=== PATIENT | female | born 1950 | race Caucasian/White ===

== ENCOUNTER → 2017-08-03 | Day surgery (SDC) | payer MEDICARE, MEDICAID ==
[~2017-08-03] MED LIST: Cefuroxime 10 MG/ML SYRINGE EYERT SCH; Lidocaine 1% PF 2 ML SDV INJECT SCH; Pilocarpine 4% Ophth Soln 15 ML Bot EYERT SCH
[2017-08-03] MEDS: Polymyxin B/Trimethoprim 10 ML Bottle EYERT SCH ×3 (08:55→10:49)
[2017-08-03] MEDS: Brimonidine 0.2% Ophth Soln 5 ML Bottle EYERT SCH ×3 (09:05→10:49)
[2017-08-03] MEDS: Phenylephrine 2.5% Ophth Soln 2 ML Bot EYERT SCH ×5 (09:10→10:25)
[2017-08-03] MEDS: Tetracaine HCl/PF 0.5% 4 ML Bottle EYERT SCH ×2 (10:18→10:47)
[2017-08-03 16:57] VITALS: BP 114/70
== END ==
LOC: JD.SDS 08:02
PROVIDERS: ATTEND Ophthalmology
DX: E11.36 Type 2 diabetes mellitus with diabetic cataract (principal); H02.831 Dermatochalasis of right upper eyelid; H02.834 Dermatochalasis of left upper eyelid; H52.31 Anisometropia; M19.90 Unspecified osteoarthritis, unspecified site; E78.00 Pure hypercholesterolemia, unspecified; M10.9 Gout, unspecified; I48.91 Unspecified atrial fibrillation; K21.9 Gastro-esophageal reflux disease without esophagitis; E11.40 Type 2 diabetes mellitus with diabetic neuropathy, unspecified; K76.0 Fatty (change of) liver, not elsewhere classified; G47.30 Sleep apnea, unspecified; Z79.82 Long term (current) use of aspirin; Z79.84 Long term (current) use of oral hypoglycemic drugs; Z79.899 Other long term (current) drug therapy; Z88.0 Allergy status to penicillin; Z88.1 Allergy status to other antibiotic agents; Z88.8 Allergy status to other drugs, medicaments and biological substances; Z91.013 Allergy to seafood; Z91.018 Allergy to other foods; Z98.890 Other specified postprocedural states
CPT/HCPCS: 66984; J0697; V2632; A9270-GY

== ENCOUNTER 2017-09-02 08:23 | Day surgery (SDC) | payer MEDICARE, MEDICAID ==
[~2017-09-02 08:23] MED LIST changes: +Cefuroxime 10 MG/ML SYRINGE EYELF SCH; -Cefuroxime 10 MG/ML SYRINGE EYERT SCH; +Pilocarpine 4% Ophth Soln 15 ML Bot EYELF SCH; -Pilocarpine 4% Ophth Soln 15 ML Bot EYERT SCH
[2017-09-02] MEDS: Polymyxin B/Trimethoprim 10 ML Bottle EYELF SCH ×3 (08:58→10:32)
[2017-09-02] MEDS: Brimonidine 0.2% Ophth Soln 5 ML Bottle EYELF SCH ×3 (09:03→10:32)
[2017-09-02] MEDS: Phenylephrine 2.5% Ophth Soln 2 ML Bot EYELF SCH ×5 (09:08→10:14)
--- NOTE | 2017-09-02 09:27 | PCM.PREANE ---
Preanesthetic Assessment - Anesthesia/Transfusion/Family Hx Anesthesia History: Prior Anesthesia Without Reaction Family History of Anesthesia Reaction: No Transfusion History: No Prior Transfusion(s) - Review of Systems General: No Symptoms Pulmonary: No Symptoms Cardiovascular: No Symptoms Gastrointestinal: No Symptoms Neurological: No Symptoms Other: Reports: Diabetes - Physical Assessment NPO Status Date: 09/01/17 NPO Status Time: 22:00 O2 Sat by Pulse Oximetry: 91 Respiratory Rate: 20 Vital Signs: Last Vital Signs Temp 98.0 F 09/02/17 08:45 Pulse 62 09/02/17 08:45 Resp 20 09/02/17 08:45 BP 140/57 L 09/02/17 08:45 Pulse Ox 91 L 09/02/17 08:45 Height: 4 ft 9 in Weight: 119.748 kg ASA Class: 3 Mental Status: Alert & Oriented x3 Airway Class: Mallampati = 1 Dentition: Reports: Normal Dentition Thyro-Mental Finger Breadths: 3 Mouth Opening Finger Breadths: 3 ROM/Head Extension: Full Lungs: Clear to Auscultation, Normal Respiratory Effort Cardiovascular: Regular Rate, Regular Rhythm - Allergies Allergies/Adverse Reactions: Allergies Allergy/AdvReac Type Severity Reaction Status Date / Time amoxicillin Allergy Hives Verified 09/01/17 14:00 coconut oil Allergy Cannot Verified 09/01/17 14:00 Remember corn Allergy Itching Verified 09/01/17 14:00 doxycycline Allergy Hives Verified 09/01/17 14:00 lithium Allergy Cannot Verified 09/01/17 14:00 Remember Penicillins Allergy Hives Verified 09/01/17 14:00 rofecoxib [From Vioxx] Allergy Cannot Verified 09/01/17 14:00 Remember soy Allergy Itching Verified 09/01/17 14:00 wheat Allergy Cannot Verified 09/01/17 14:00 Remember oats Allergy Itching Uncoded 09/01/17 14:00 - Blood Blood Available: No - Anesthesia Plan Beta Antonio: Atenolol Med Last Dose Date: 09/02/17 Med Last Dose Time: 09:30 - Acknowledgements Anesthesia Type Planned: MAC Pt an Appropriate Candidate for the Planned Anesthesia: Yes Alternatives and Risks of Anesthesia Discussed w Pt/Guardian: Yes Pt/Guardian Understands and Agrees with Anesthesia Plan: Yes PreAnesthesia Questionnaire HEENT History: Reports: Allergic Rhinitis, Cataract Cardiovascular History: Reports: Afib, High Cholesterol, Hypertension Other Cardiovascular History: lower leg lymphedema, edema, Hx of Chest Pressure with A-Fib Respiratory History: Reports: Asthma, Sleep Apnea Other Respiratory History: does not use her CPAP Gastrointestinal History: Reports: GERD Musculoskeletal History: Reports: Arthritis, Gout, Osteoarthritis Endocrine/Metabolic History: Reports: Diabetes, Type II Dermatologic History: Reports: Other (See Below) Other Dermatologic History: rash on her abdomen - Past Surgical History HEENT Surgical History: Reports: Cataract Surgery GI Surgical History: Reports: Cholecystectomy, Hernia, Inguinal Musculoskeletal Surgical History: Reports: Knee Replacement - SUBSTANCE USE Smoking Status *Q: Never Smoker Tobacco Use Within Last Twelve Months: No Second Hand Smoke Exposure: No Days Per Week of Alcohol Use: 0 Recreational Drug Use History: No - HOME MEDS Home Medications: Home Meds Acetaminophen [Tylenol Arthritis Pain] 650 mg PO Q8HR PRN 08/08/14 [History] Allopurinol [Allopurinol] 0.5 tab PO DAILY 08/08/14 [History] Aspirin [Adult Low Dose Aspirin EC] 81 mg PO DAILY 08/08/14 [History] Atenolol [Tenormin] 1 tab PO DAILY 08/08/14 [History] Calcium Carb & Citrate/Vit D3 [Calcium + D3 ER Tablet] 600 mg PO DAILY 08/08/14 [History] Furosemide [Lasix] 1 tab PO BID 08/08/14 [History] Multivitamin [Multivitamins] 1 tab PO DAILY 08/08/14 [History] Ondansetron [Zofran] 4 mg BUCCAL Q6H PRN #5 tab 08/08/14 [Rx] Pantoprazole [Protonix] 40 mg PO DAILY 08/08/14 [History] Polyvinyl Alcohol/Povidone [Refresh Eye Drops] 1 each EYEBOTH DAILY 08/08/14 [ History] Potassium Chloride [Klor-Con M20] 20 meq PO DAILY 08/08/14 [History] Rosuvastatin [Crestor] 1 tab PO DAILY 08/08/14 [History] Vitamin B Complex 1 tab PO DAILY 08/08/14 [History] guaiFENesin [Mucinex] 300 mg PO DAILY 08/08/14 [History] metFORMIN [Glucophage] 250 mg PO BID 08/08/14 [History] Cetirizine [ZyrTEC] 10 mg PO DAILY 11/27/15 [History] Diltiazem HCl [Diltiazem ER] 180 mg PO DAILY 11/27/15 [History] Menthol [Biofreeze] 1 applic TP Q4HR PRN 11/27/15 [History] Sennosides/Docusate Sodium [Sennalax-S] 1 each PO BID 11/27/15 [History] Triamcinolone Acetonide [Triamcinolone Acetonide 0.1% Crm] 1 applic TOP BID [History] guaiFENesin [Mucinex] 600 mg PO BEDTIME 11/27/15 [History] - CURRENT (IN HOUSE) MEDS Current Meds: Current Medications Brimonidine Tartrate (Alphagan 0.2% Ophth Soln) 0 ml EYELF ASDIRECTED ILA Stop: 09/02/17 16:00 Last Admin: 09/02/17 09:03 Dose: 1 drop Cefuroxime Sodium (Zinacef) 0 mg EYELF ASDIRECTED ILA Stop: 09/02/17 16:00 Lidocaine HCl (Xylocaine-Mpf 1%) 1 ml INJECT ASDIRECTED ILA Stop: 09/02/17 16:00 Phenylephrine HCl (Yandel-Synephrine 2.5% Ophth Soln) 0 ml EYELF ASDIRECTED ILA Stop: 09/02/17 16:00 Last Admin: 09/02/17 09:08 Dose: 1 drop Pilocarpine HCl (Pilocar 4% Ophth Soln) 0 ml EYELF ASDIRECTED ILA Stop: 09/02/17 16:00 Polymyxin/Trimethoprim Sulfate (Polytrim Ophth Soln) 0 ml EYELF ASDIRECTED ILA Stop: 09/02/17 16:00 Last Admin: 09/02/17 08:58 Dose: 1 drop Tetracaine HCl (Tetracaine 0.5% Steri-Unit Maci) 0 ml EYELF ASDIRECTED ILA Stop: 09/02/17 16:00 Tropicamide (Mydriacyl 1% Ophth Soln) 0 ml EYELF ASDIRECTED ILA Stop: 09/02/17 16:00 Last Admin: 09/02/17 09:16 Dose: 1 drop
[2017-09-02] MEDS: Tetracaine HCl/PF 0.5% 4 ML Bottle EYELF SCH ×2 (10:02→10:22)
--- NOTE | 2017-09-02 10:35 | PCM48HPAN ---
Post Anesthesia Note - EVALUATION WITHIN 48HRS OF ANESTHETIC Vital Signs in Normal Range: Yes Patient Participated in Evaluation: Yes Respiratory Function Stable: Yes Airway Patent: Yes Cardiovascular Function Stable: Yes Hydration Status Stable: Yes Pain Control Satisfactory: Yes Nausea and Vomiting Control Satisfactory: Yes Mental Status Recovered: Yes
[2017-09-02 10:55] VITALS: BP 114/63
== END 2017-09-02 10:46 | disposition home or self-care (01) ==
LOC: JD.SDS 08:23
PROVIDERS: ATTEND Ophthalmology
DX: E11.36 Type 2 diabetes mellitus with diabetic cataract (principal); M19.90 Unspecified osteoarthritis, unspecified site; J45.909 Unspecified asthma, uncomplicated; E78.00 Pure hypercholesterolemia, unspecified; M10.9 Gout, unspecified; I10 Essential (primary) hypertension; K76.0 Fatty (change of) liver, not elsewhere classified; G47.30 Sleep apnea, unspecified; I48.91 Unspecified atrial fibrillation; K21.9 Gastro-esophageal reflux disease without esophagitis; E11.40 Type 2 diabetes mellitus with diabetic neuropathy, unspecified; Z96.1 Presence of intraocular lens; Z90.49 Acquired absence of other specified parts of digestive tract; Z96.659 Presence of unspecified artificial knee joint; Z79.899 Other long term (current) drug therapy; Z79.82 Long term (current) use of aspirin; Z79.84 Long term (current) use of oral hypoglycemic drugs; Z88.0 Allergy status to penicillin; Z88.1 Allergy status to other antibiotic agents; Z91.018 Allergy to other foods; Z88.8 Allergy status to other drugs, medicaments and biological substances; Z91.013 Allergy to seafood
CPT/HCPCS: 66984; J0697; V2632; A9270-GY

== ENCOUNTER 2018-02-19 11:19 | Emergency (ER) | payer MEDICARE, MEDICAID ==
[2018-02-19 11:26] VITALS: BP 136/69
[2018-02-19] MEDS ORDERED: HYDROmorphone 0.5 MG/0.5 ML SYRINGE IVPUSH ONE (11:40)
[2018-02-19] MEDS ORDERED: Sodium Chloride 0.9% 10 ML Syringe FLUSH PRN (11:40)
--- NOTE | 2018-02-19 11:43 | EDM.PDOC ---
ED HPI GENERAL MEDICAL PROBLEM - General Chief Complaint: Lower Extremity Injury/Pain Stated Complaint: [facility] Time Seen by Provider: 02/19/18 11:31 Source of Information: Reports: Patient History Limitations: Reports: No Limitations - History of Present Illness INITIAL COMMENTS - FREE TEXT/NARRATIVE: 68-year-old female presents to [facility] for evaluation and treatment of bilateral knee pain post fall. Patient reports that she recently relocated to a new apartment building. She previously had rails on either side of her toilet. At her new apartment she only has a rail on one side and a small cabinet on the other. Reports that she was getting off of the toilet she was not able to fully support herself and fell. She landed onto both knees. She reports that her she did hit her head on a cart in front of her but she did not pass out or lose consciousness. She denies any nausea or vomiting. She is pain complaining of pain to the bilateral knees, worse with movement. She reports numbness and tingling to the anterior bilateral knees. No pain to arms, hip or back. patient had bilateral knee replacement. Right knee was done in 2012 and left knee was in 2014. Both of these were done by Dr. Hill at [facility] in [place]. Bilateral Knee Pain Score (Numeric/FACES): 7 - Related Data Allergies Allergy/AdvReac Type Severity Reaction Status Date / Time amoxicillin Allergy Hives Verified 02/19/18 13:45 coconut oil Allergy Cannot Verified 02/19/18 13:45 Remember corn Allergy Itching Verified 02/19/18 13:45 doxycycline Allergy Hives Verified 02/19/18 13:45 lithium Allergy Cannot Verified 02/19/18 13:45 Remember Penicillins Allergy Hives Verified 02/19/18 13:45 rofecoxib [From Vioxx] Allergy Cannot Verified 02/19/18 13:45 Remember soy Allergy Itching Verified 02/19/18 13:45 wheat Allergy Cannot Verified 02/19/18 13:45 Remember oats Allergy Itching Uncoded 09/01/17 14:00 Home Meds: Home Meds Acetaminophen [Tylenol Arthritis Pain] 650 mg PO Q8HR PRN 08/08/14 [History] Allopurinol 0.5 tab PO DAILY 08/08/14 [History] Aspirin [Adult Low Dose Aspirin EC] 81 mg PO DAILY 08/08/14 [History] Atenolol [Tenormin] 1 tab PO DAILY 08/08/14 [History] Calcium Carb & Citrate/Vit D3 [Calcium + D3 ER Tablet] 600 mg PO DAILY 08/08/14 [History] Furosemide [Lasix] 1 tab PO BID 08/08/14 [History] Multivitamin [Multivitamins] 1 tab PO DAILY 08/08/14 [History] Ondansetron [Zofran] 4 mg BUCCAL Q6H PRN #5 tab 08/08/14 [Rx] Pantoprazole [Protonix] 40 mg PO DAILY 08/08/14 [History] Polyvinyl Alcohol/Povidone [Refresh Eye Drops] 1 each EYEBOTH DAILY 08/08/14 [ History] Potassium Chloride [Klor-Con M20] 20 meq PO DAILY 08/08/14 [History] Rosuvastatin [Crestor] 1 tab PO DAILY 08/08/14 [History] Vitamin B Complex 1 tab PO DAILY 08/08/14 [History] guaiFENesin [Mucinex] 300 mg PO DAILY 08/08/14 [History] metFORMIN [Glucophage] 250 mg PO BID 08/08/14 [History] Cetirizine [ZyrTEC] 10 mg PO DAILY 11/27/15 [History] Diltiazem HCl [Diltiazem ER] 180 mg PO DAILY 11/27/15 [History] Menthol [Biofreeze] 1 applic TP Q4HR PRN 11/27/15 [History] Sennosides/Docusate Sodium [Sennalax-S] 1 each PO BID 11/27/15 [History] Triamcinolone Acetonide [Triamcinolone Acetonide 0.1% Crm] 1 applic TOP BID [History] guaiFENesin [Mucinex] 600 mg PO BEDTIME 11/27/15 [History] Past Medical History HEENT History: Reports: Allergic Rhinitis, Cataract Cardiovascular History: Reports: Afib, High Cholesterol, Hypertension Other Cardiovascular History: lower leg lymphedema, edema, Hx of Chest Pressure with A-Fib Respiratory History: Reports: Asthma, Sleep Apnea Other Respiratory History: does not use her CPAP Gastrointestinal History: Reports: GERD Musculoskeletal History: Reports: Arthritis, Gout, Osteoarthritis Endocrine/Metabolic History: Reports: Diabetes, Type II Dermatologic History: Reports: Other (See Below) Other Dermatologic History: rash on her abdomen - Past Surgical History HEENT Surgical History: Reports: Cataract Surgery GI Surgical History: Reports: Cholecystectomy, Hernia, Inguinal Musculoskeletal Surgical History: Reports: Knee Replacement Review of Systems - Review of Systems Review Of Systems: See Below GI/Abdominal: Denies: Nausea, Vomiting Musculoskeletal: Reports: Joint Pain (bilateral knee pain). Denies: Neck Pain, Arm Pain, Back Pain Neurological: Reports: Numbness (bilateral knees), Tingling (bilateral knees). Denies: Headache, Syncope ED EXAM, GENERAL - Physical Exam Exam: See Below Exam Limited By: No Limitations General Appearance: Alert, WD/WN, No Apparent Distress, Obese Eye Exam: Bilateral Eye: Normal Inspection Ears: Normal External Exam Nose: Normal Inspection Throat/Mouth: Normal Inspection Head: Atraumatic, Normocephalic Neck: Normal Inspection, Full Range of Motion Respiratory/Chest: No Respiratory Distress, Lungs Clear, Normal Breath Sounds Cardiovascular: Normal Peripheral Pulses, Regular Rate, Rhythm, No Murmur Peripheral Pulses: 2+: Dorsalis Pedis (L), Dorsalis Pedis (R) Extremities: Normal Inspection, Normal Capillary Refill, Limited Range of Motion (able to flex the bilteral knees to 90 degrees; knee pain/body habitus limiting full ROM), Other (posterior tibialis pulses obscured by edema; 3+ nonpitting edema to the bilateal legs; reports sensation to light touch to the bilteral knees and lower legs) Neurological: Alert, Oriented, Normal Cognition Psychiatric: Normal Affect, Normal Mood Skin Exam: Warm, Dry, Normal Color Course - Vital Signs Last Recorded V/S: Last Vital Signs Temp 98.7 F 02/19/18 11:25 Pulse 72 02/19/18 11:25 Resp 20 02/19/18 11:25 BP 136/69 02/19/18 11:25 Pulse Ox 94 L 02/19/18 11:25 - Orders/Labs/Meds Orders: Active Orders 24 hr Category Date Time Status Peripheral IV Care [RC] . DIRECTED Care 02/19/18 11:40 Active Knee Min 4V Lt [CR] Stat Exams 02/19/18 11:40 Taken Knee Min 4V Rt [CR] Stat Exams 02/19/18 11:40 Taken Peripheral IV Insertion Adult [OM.PC] Routine Oth 02/19/18 11:40 Ordered Meds: Medications Discontinued Medications Generic Name Dose Route Start Last Admin Trade Name Jamar PRN Reason Stop Dose Admin Hydromorphone HCl 0.5 mg 02/19/18 11:40 Dilaudid IVPUSH 02/19/18 11:41 ONETIME ONE Hydromorphone HCl 0.5 mg 02/19/18 11:52 02/19/18 11:54 Dilaudid IM 02/19/18 11:53 0.5 mg ONETIME ONE Administration Sodium Chloride 10 ml 02/19/18 11:40 Saline Flush FLUSH ASDIRECTED PRN Keep Vein Open - Radiology Interpretation Free Text/Narrative:: xray of the right knee shows a total knee replacement. Hardware appears in place. No fractures or dislocations seen. xray of the left knee shows a total knee replacement. Hardware appears in place. No fractures or dislocations seen. - Re-Assessments/Exams Free Text/Narrative Re-Assessment/Exam: 02/19/18 13:10 IM dilaudid has given patient has good pain relief with this. Reviewed the x-rays with the patient. No acute fractures seen. Likely soft tissue swelling. Encourage elevation and ice. Follow-up with primary care next week to ensure symptoms have improved. Discharge instructions as documented. Departure - Departure Time of Disposition: 13:12 Disposition: Home, Self-Care 01 Condition: Fair Clinical Impression: Fall, Knee pain, Status post total knee replacement, bilateral - Discharge Information Instructions: Knee Pain, Adult, Fall Prevention in the Home Referrals: Eugenio Aguilar MD [Primary Care Provider] - Alex Hill MD [Ordering Only Provider] - Forms: ED Department Discharge Additional Instructions: [id number] Tylenol or Motrin as needed for pain relief. Elevate the legs to help with the swelling. Ice the knees 3 or times a day for about 20-30 minutes. Follow-up with your primary care provider for recheck of your knees within 1 week. Please return to the ER if your symptoms change or worsen. - My Orders Last 24 Hours: My Active Orders 02/19/18 11:40 Peripheral IV Care [RC] . DIRECTED Knee Min 4V Lt [CR] Stat Knee Min 4V Rt [CR] Stat Peripheral IV Insertion Adult [OM.PC] Routine - Assessment/Plan Last 24 Hours: My Active Orders 02/19/18 11:40 Peripheral IV Care [RC] . DIRECTED Knee Min 4V Lt [CR] Stat Knee Min 4V Rt [CR] Stat Peripheral IV Insertion Adult [OM.PC] Routine
[2018-02-19] MEDS ORDERED: HYDROmorphone 0.5 MG/0.5 ML SYRINGE IM ONE (11:52)
--- NOTE | 2018-02-21 12:26 | CR ---
Left knee: Four views of the left knee were obtained. Comparison: Previous left knee exam of 05/10/12. Left knee prosthesis is seen. Components are aligned. Underlying bony structures are osteopenic. Incidental soft tissue calcifications are noted. No acute bony abnormality is identified. Impression: 1. Left knee prosthesis and other incidental findings. Nothing acute is appreciated on left knee exam. Diagnostic code #2
--- NOTE | 2018-02-21 12:26 | CR ---
Right knee: Four views of the right knee were obtained. Comparison: Previous right knee exam of 05/10/12. Knee prosthesis is seen. Components are aligned. Underlying bony structures are intact. Osteopenia is noted. No acute fracture is seen. Impression: 1. Knee prosthesis. Nothing acute is seen on right knee exam. Diagnostic code #2
== END 2018-02-19 13:35 | disposition home or self-care (01) ==
LOC: SUPCPDRO 11:19 → JD.ED 11:19
DX: M25.561 Pain in right knee (principal); M25.562 Pain in left knee; I10 Essential (primary) hypertension; E11.9 Type 2 diabetes mellitus without complications; Z88.8 Allergy status to other drugs, medicaments and biological substances; Z88.1 Allergy status to other antibiotic agents; Z91.018 Allergy to other foods; Z79.899 Other long term (current) drug therapy; Z96.653 Presence of artificial knee joint, bilateral; W19.XXXA Unspecified fall, initial encounter
CPT/HCPCS: 73564; 96372; 99284; J1170

== ENCOUNTER 2019-09-28 11:54 | Emergency (ER) | payer MEDICARE, MEDICAID ==
[2019-09-28 12:11] VITALS: BP 103/50; PULSE 56
[2019-09-28] MEDS ORDERED: Ondansetron 4 MG Tab.DIS PO ONE (12:28)
[2019-09-28] MEDS ORDERED: Sodium Chloride 0.9% 10 ML Syringe FLUSH PRN (12:29)
[2019-09-28] MEDS ORDERED: Sodium Chloride 0.9% 1,000 ML IV SCH (12:30)
[2019-09-28] MEDS ORDERED: Potassium Chloride 10 MEQ in Premix Bag 1 BAG IV ONE (14:05)
--- NOTE | 2019-09-28 14:09 | CR ---
Chest: Portable view of the chest was obtained. Comparison: Prior chest x-ray of 08/07/18. Heart is enlarged. Tortuous thoracic aorta is seen. Lungs are clear with no acute parenchymal change. Bony structures are grossly intact. Impression: 1. Cardiomegaly. Nothing acute is otherwise seen. Diagnostic code #2 This report was dictated in [place] Standard Time
[2019-09-28] MEDS ORDERED: Aspirin 81 MG Tab.Chew PO ONE (14:43)
[2019-09-28] MEDS ORDERED: Lactated Ringers 1,000 ML IV SCH (15:30)
--- NOTE | 2019-09-28 15:31 | EDM.PDOC ---
ED HPI GENERAL MEDICAL PROBLEM - General Chief Complaint: Chest Pain Stated Complaint: [facility] Time Seen by Provider: 09/28/19 12:03 Source of Information: Reports: Patient, RN Notes Reviewed - History of Present Illness INITIAL COMMENTS - FREE TEXT/NARRATIVE: 69-year-old female has been brought [facility] to ED after having chest discomfort, described as a tightness without radiation early this morning about 10 hours ago. States the discomfort did last for an hour or 2 and then eventually she was able to go back to sleep. She continued to have mild discomfort anterior chest upon awakening this morning and at some point decided she should call an ambulance. She just had 4 front teeth extracted by oral surgery yesterday. She did not take some of her medications yesterday including her eliquis and also her "water pills". She did have general anesthesia so did not have [facility] fluid intake yesterday as well. On arrival to ED her chest discomfort is mostly gone. She still feels very mild tightness anterior chest without radiation. She states her mouth is very dry. There's been no abdominal pain,vomiting or diaphoresis although she has had intermittent nausea since going home yesterday. She does have history of hypertension and diabetes. Looking at her old records she did have an episode of elevated troponin about 15 months ago. States that she did have an angiogram in [place] at that time" no major blockage was found, no stents were placed. Upper Tooth/Teeth Pain Score (Numeric/FACES): 8 - Related Data Allergies Allergy/AdvReac Type Severity Reaction Status Date / Time amoxicillin Allergy Hives Verified 09/28/19 12:07 coconut oil Allergy Cannot Verified 09/28/19 12:07 Remember corn Allergy Itching Verified 09/28/19 12:07 doxycycline Allergy Hives Verified 09/28/19 12:07 lithium Allergy Cannot Verified 09/28/19 12:07 Remember Penicillins Allergy Hives Verified 09/28/19 12:07 rofecoxib [From Vioxx] Allergy Cannot Verified 09/28/19 12:07 Remember soy Allergy Itching Verified 09/28/19 12:07 wheat Allergy Cannot Verified 09/28/19 12:07 Remember oats Allergy Itching Uncoded 09/28/19 12:07 Home Meds: Home Meds Acetaminophen [Tylenol Arthritis Pain] 650 mg PO Q8HR PRN 08/08/14 [History] Aspirin [Adult Low Dose Aspirin EC] 81 mg PO DAILY 08/08/14 [History] Calcium Carb, Citrate/Vit D3 [Calcium + D3 ER Tablet] 600 mg PO DAILY 08/08/14 [ History] Furosemide [Lasix] 80 mg PO BID 08/08/14 [History] Multivitamin [Multivitamins] 1 tab PO DAILY 08/08/14 [History] Pantoprazole [Protonix] 40 mg PO DAILY 08/08/14 [History] Polyvinyl Alcohol/Povidone [Refresh Eye Drops] 1 each EYEBOTH DAILY 08/08/14 [ History] Potassium Chloride [Klor-Con M20] 20 meq PO BID 08/08/14 [History] Rosuvastatin [Crestor] 1 tab PO DAILY 08/08/14 [History] Vitamin B Complex 1 tab PO DAILY 08/08/14 [History] allopurinoL [Allopurinol] 0.5 tab PO DAILY 08/08/14 [History] atenoloL [Tenormin] 1 tab PO DAILY 08/08/14 [History] metFORMIN [Glucophage] 250 mg PO BID 08/08/14 [History] Cetirizine [ZyrTEC] 10 mg PO DAILY 11/27/15 [History] Diltiazem HCl [Diltiazem ER] 180 mg PO DAILY 11/27/15 [History] Menthol [Biofreeze] 1 applic TP Q4HR PRN 11/27/15 [History] Sennosides/Docusate Sodium [Sennalax-S] 1 tab PO BEDTIME 11/27/15 [History] guaiFENesin [Mucinex] 600 mg PO BEDTIME 11/27/15 [History] Gabapentin. 1 cap PO BID 08/07/18 [History] Past Medical History HEENT History: Reports: Allergic Rhinitis, Cataract Cardiovascular History: Reports: Afib, High Cholesterol, Hypertension Other Cardiovascular History: lower leg lymphedema, edema, Hx of Chest Pressure with A-Fib Respiratory History: Reports: Asthma, Sleep Apnea Other Respiratory History: does not use her CPAP Gastrointestinal History: Reports: GERD Musculoskeletal History: Reports: Arthritis, Gout, Osteoarthritis Endocrine/Metabolic History: Reports: Diabetes, Type II Dermatologic History: Reports: Other (See Below) Other Dermatologic History: rash on her abdomen - Past Surgical History HEENT Surgical History: Reports: Cataract Surgery GI Surgical History: Reports: Cholecystectomy, Hernia, Inguinal Musculoskeletal Surgical History: Reports: Knee Replacement Social & Family History - Tobacco Use Smoking Status *Q: Never Smoker - Caffeine Use Caffeine Use: Reports: Coffee - Recreational Drug Use Recreational Drug Use: No ED ROS GENERAL - Review of Systems Review Of Systems: See Below Constitutional: Denies: Fever, Chills, Diaphoresis HEENT: Reports: No Symptoms Respiratory: Reports: Shortness of Breath, Cough (Mild) Cardiovascular: Reports: Chest Pain ( occasional), Lightheadedness GI/Abdominal: Reports: Nausea. Denies: Abdominal Pain, Vomiting Musculoskeletal: Denies: Shoulder Pain, Arm Pain, Back Pain Skin: Reports: No Symptoms Neurological: Denies: Numbness, Tingling, Weakness ED EXAM, NEURO - Physical Exam Exam: See Below General Appearance: Alert, No Apparent Distress, Other (Moderately drowsy on arrival to ED skin is pale but warm and dry) Eye Exam: Bilateral Eye: PERRL Throat/Mouth: Other Head Exam: No: Facial Swelling (Oral mucosa very dry) Neck: Supple, Other Respiratory/Chest: No Respiratory Distress, Lungs Clear, Normal Breath Sounds, Chest Non-Tender Cardiovascular: Regular Rate, Rhythm GI/Abdominal: Soft, Non-Tender. No: Guarding Neurological: No Motor/Sensory Deficits, Other (Mildly drowsy, presumably from prior pain medication open eyes to voice, does answer questions appropriately) Extremities: Normal Inspection, Pedal Edema. No: Leg Pain, Redness (Mild to moderate bilateral) Skin Exam: Warm, Dry EKG INTERPRETATION EKG Date: 09/28/19 Rhythm: NSR Alvarado: Normal P-Wave: Present QRS: Other (There are Q waves in lead [address]-T: Other (She does have T-wave inversions in lead 3 inferiorly and also V2 and V3 anteriorly, no significant ST elevation or depression) Course - Vital Signs Last Recorded V/S: Last Vital Signs Temp 98.3 F 09/28/19 11:58 Pulse 56 L 09/28/19 11:58 Resp 18 09/28/19 11:58 BP 103/50 L 09/28/19 11:58 Pulse Ox 80 L 09/28/19 11:58 - Orders/Labs/Meds Orders: Active Orders 24 hr Category Date Time Status EKG 12 Lead [EKG Documentation Completion] [RC] STAT Care 09/28/19 12:29 Active EKG 12 Lead [EKG Documentation Completion] [RC] STAT Care 09/28/19 16:48 Active Oxygen Therapy [RC] ASDIRECTED Care 09/28/19 12:30 Active Peripheral IV Care [RC] . DIRECTED Care 09/28/19 12:30 Active PTT,PARTIAL THROMBOPLSTIN TIME [COAG] Stat Lab 09/28/19 17:41 Ordered Peripheral IV Insertion Adult [OM.PC] Stat Oth 09/28/19 12:30 Ordered Labs: Laboratory Tests 09/28/19 09/28/19 09/28/19 Range/Units 13:05 13:05 13:05 WBC 8.61 (3.98-10.04) K/mm3 RBC 4.98 (3.98-5.22) M/mm3 Hgb 14.3 (11.2-15.7) gm/dl Hct 45.5 H (34.1-44.9) % MCV 91.4 (79.4-94.8) fl MCH 28.7 (25.6-32.2) pg MCHC 31.4 L (32.2-35.5) g/dl RDW Std Deviation 52.4 H (36.4-46.3) fL Plt Count 175 L (182-369) K/mm3 MPV 11.1 (9.4-12.3) fl Neut % (Auto) 60.1 (34.0-71.1) % Lymph % (Auto) 29.3 (19.3-51.7) % [place] % (Auto) 9.4 (4.7-12.5) % Eos % (Auto) 0.9 (0.7-5.8) Baso % (Auto) 0.2 (0.1-1.2) % Neut # (Auto) 5.17 (1.56-6.13) K/mm3 Lymph # (Auto) 2.52 (1.18-3.74) K/mm3 [place] # (Auto) 0.81 H (0.24-0.36) K/mm3 Eos # (Auto) 0.08 (0.04-0.36) K/mm3 Baso # (Auto) 0.02 (0.01-0.08) K/mm3 Sodium 142 (136-145) mEq/L Potassium 2.6 L (3.5-5.1) mEq/L Chloride 96 L (98-107) mEq/L Carbon Dioxide 38 H (21-32) mEq/L Anion Gap 10.6 (5-15) BUN 36 H D (7-18) mg/dL Creatinine 2.4 H D (0.55-1.02) mg/dL Est Cr Clr Drug Dosing 16.34 mL/min Estimated GFR (MDRD) 20 (>60) mL/min BUN/Creatinine Ratio 15.0 (14-18) Glucose 130 H (80-115) mg/dL Calcium 9.1 (8.5-10.1) mg/dL Total Bilirubin 0.4 (0.2-1.0) mg/dL AST 28 (15-37) U/L ALT 39 (14-59) U/L Alkaline Phosphatase 80 (46-116) U/L Troponin I 0.093 H* (0.00-0.056) ng/mL NT-Pro-B Natriuret Pep 5422 H (0-125) pg/mL Total Protein 7.5 (6.4-8.2) g/dl Albumin 3.5 (3.4-5.0) g/dl Globulin 4.0 gm/dL Albumin/Globulin Ratio 0.9 L (1-2) 09/28/19 Range/Units 15:30 WBC (3.98-10.04) K/mm3 RBC (3.98-5.22) M/mm3 Hgb (11.2-15.7) gm/dl Hct (34.1-44.9) % MCV (79.4-94.8) fl MCH (25.6-32.2) pg MCHC (32.2-35.5) g/dl RDW Std Deviation (36.4-46.3) fL Plt Count (182-369) K/mm3 MPV (9.4-12.3) fl Neut % (Auto) (34.0-71.1) % Lymph % (Auto) (19.3-51.7) % [place] % (Auto) (4.7-12.5) % Eos % (Auto) (0.7-5.8) Baso % (Auto) (0.1-1.2) % Neut # (Auto) (1.56-6.13) K/mm3 Lymph # (Auto) (1.18-3.74) K/mm3 [place] # (Auto) (0.24-0.36) K/mm3 Eos # (Auto) (0.04-0.36) K/mm3 Baso # (Auto) (0.01-0.08) K/mm3 Sodium (136-145) mEq/L Potassium (3.5-5.1) mEq/L Chloride (98-107) mEq/L Carbon Dioxide (21-32) mEq/L Anion Gap (5-15) BUN (7-18) mg/dL Creatinine (0.55-1.02) mg/dL Est Cr Clr Drug Dosing mL/min Estimated GFR (MDRD) (>60) mL/min BUN/Creatinine Ratio (14-18) Glucose (80-115) mg/dL Calcium (8.5-10.1) mg/dL Total Bilirubin (0.2-1.0) mg/dL AST (15-37) U/L ALT (14-59) U/L Alkaline Phosphatase (46-116) U/L Troponin I 0.076 H* (0.00-0.056) ng/mL NT-Pro-B Natriuret Pep (0-125) pg/mL Total Protein (6.4-8.2) g/dl Albumin (3.4-5.0) g/dl Globulin gm/dL Albumin/Globulin Ratio (1-2) Meds: Medications Discontinued Medications Generic Name Dose Route Start Last Admin Trade Name Mikeq PRN Reason Stop Dose Admin Aspirin 324 mg 09/28/19 14:43 09/28/19 15:36 Aspirin PO 09/28/19 14:44 324 mg ONETIME ONE Administration Heparin Sodium (Porcine) 4,000 units 09/28/19 17:40 09/28/19 17:53 Heparin Sodium IVPUSH 09/28/19 17:41 4,000 units ONETIME ONE Administration Heparin Sodium (Porcine) 4,000 units 09/28/19 17:41 09/28/19 17:58 Heparin Sodium IVPUSH 09/28/19 17:42 Not Given .BOLUS ONE Sodium Chloride 1,000 mls @ 999 mls/hr 09/28/19 12:30 09/28/19 12:54 Normal Saline IV 999 mls/hr ONETIME ILA Administration Potassium Chloride 10 meq/ 100 mls @ 50 mls/hr 09/28/19 14:05 09/28/19 14:18 Premix IV 09/28/19 16:04 100 mls/hr ASDIRECTED ONE Administration Lactated Ringer's 1,000 mls @ 150 mls/hr 09/28/19 15:30 09/28/19 15:36 Ringers, Lactated IV 150 mls/hr ASDIRECTED ILA Administration Heparin Sodium/Dextrose 25,000 units in 500 mls @ 27.216 mls/hr 09/28/19 17: 45 09/28/19 17:53 Heparin 25,000 Units In D5w 500 Ml IV 12 units/kg/hr TITRATE ILA 27.216 mls/hr Administration Protocol 12 UNITS/KG/HR Ondansetron HCl 4 mg 09/28/19 12:28 09/28/19 12:54 Zofran Odt PO 09/28/19 12:29 4 mg ONETIME ONE Administration Prednisone 20 mg 09/28/19 17:16 09/28/19 17:58 Prednisone PO 09/28/19 17:17 20 mg ONETIME ONE Administration Sodium Chloride 10 ml 09/28/19 12:29 09/28/19 12:54 Saline Flush FLUSH 10 ml ASDIRECTED PRN Administration Keep Vein Open - Re-Assessments/Exams Free Text/Narrative Re-Assessment/Exam: 09/28/19 12;30. Patient does feel much better after 500 no bolus of normal saline, Zofran 4 mg IV. However her troponin has come back very mildly elevated at 0.093. Pain free, has been sleeping. K+ came back low at 2.6. Have ordered 10 meq KCL IV. 09/28/19 17:30. Repeat troponin came back and 0.076. Patient in general does feel better but states she did have some mild chest pressure short time ago. Repeat EKG unchanged from prior EKG of 4 hours ago. I did discuss this with Manager Sourcing ironing worker for [facility] where she had her angiogram about 15 months ago. He does recomend either hospitalization for medical stabilization here or transfer for medical stabilization there and then follow-up angiogram if indicated. Have discussed this with patient, she would prefer to be transferred to [facility] at this time. I discussed this with Dr. Cortez, hospitalist accepting physician. She will be transferred by ground ambulance. She was given aspirin 324 mg orally. Have given heparin bolus 4000 units IV and heparin drip has been started at 1000 units per hour. She is pain-free at time of transfer. 09/28/19 19:12 Departure - Departure Time of Disposition: 18:00 Disposition: DC/Tfer to Acute Hospital 02 Clinical Impression: Non-STEMI (non-ST elevated myocardial infarction), Hypokalemia, Renal insufficiency - Discharge Information Referrals: Eugenio Aguilar MD [Primary Care Provider] - Forms: ED Department Discharge Sepsis Event Note - Evaluation Sepsis Screening Result: No Definite Risk - Focused Exam Vital Signs: Vital Signs Temp Pulse Resp BP Pulse Ox 09/28/19 11:58 98.3 F 56 L 18 103/50 L 80 L Date Exam was Performed: 09/28/19 Time Exam was Performed: 19:12 - My Orders Last 24 Hours: My Active Orders 09/28/19 12:29 EKG 12 Lead [EKG Documentation Completion] [RC] STAT 09/28/19 12:30 Oxygen Therapy [RC] ASDIRECTED Peripheral IV Care [RC] . DIRECTED Peripheral IV Insertion Adult [OM.PC] Stat 09/28/19 16:48 EKG 12 Lead [EKG Documentation Completion] [RC] STAT 09/28/19 17:41 PTT,PARTIAL THROMBOPLSTIN TIME [COAG] Stat - Assessment/Plan Last 24 Hours: My Active Orders 09/28/19 12:29 EKG 12 Lead [EKG Documentation Completion] [RC] STAT 09/28/19 12:30 Oxygen Therapy [RC] ASDIRECTED Peripheral IV Care [RC] . DIRECTED Peripheral IV Insertion Adult [OM.PC] Stat 09/28/19 16:48 EKG 12 Lead [EKG Documentation Completion] [RC] STAT 09/28/19 17:41 PTT,PARTIAL THROMBOPLSTIN TIME [COAG] Stat
[2019-09-28] MEDS ORDERED: predniSONE 20 MG Tab PO ONE (17:16)
[2019-09-28] MEDS ORDERED: Heparin Sodium 5,000 Units/ML Vial IVPUSH ONE ×2 (17:40→17:41)
[2019-09-28] MEDS ORDERED: Heparin Sodium/D5W 25,000 UNITS/500 ML BAG IV SCH (17:45)
== END 2019-09-28 18:34 ==
LOC: JD.ED 11:54
DX: I21.4 Non-ST elevation (NSTEMI) myocardial infarction (principal); E87.6 Hypokalemia; N28.9 Disorder of kidney and ureter, unspecified; I10 Essential (primary) hypertension; E78.00 Pure hypercholesterolemia, unspecified; E11.9 Type 2 diabetes mellitus without complications; I48.91 Unspecified atrial fibrillation; K21.9 Gastro-esophageal reflux disease without esophagitis; M10.9 Gout, unspecified; Z88.1 Allergy status to other antibiotic agents; Z91.018 Allergy to other foods; Z88.0 Allergy status to penicillin; Z88.8 Allergy status to other drugs, medicaments and biological substances; Z79.82 Long term (current) use of aspirin; Z79.899 Other long term (current) drug therapy; Z79.84 Long term (current) use of oral hypoglycemic drugs
CPT/HCPCS: 36415; 71045; 80053; 83880; 84484; 85025; 93005; 96361; 96365; 96367; 99285; A9270; J1644; J3480; J7030; J7120; 93010; 99284

== ENCOUNTER 2020-01-10 00:36 | Emergency (ER) | payer MEDICARE, MEDICAID ==
[2020-01-10 00:58] VITALS: BP 126/59; PULSE 92
--- NOTE | 2020-01-10 01:32 | EDM.PDOC ---
ED HPI GENERAL MEDICAL PROBLEM - General Chief Complaint: [employer]TER Problem Stated Complaint: VAGINAL BLEEDING Time Seen by Provider: 01/10/20 01:21 - History of Present Illness INITIAL COMMENTS - FREE TEXT/NARRATIVE: 69-year-old female presents to the emergency room with some vaginal bleeding. Patient had a complete hysterectomy about 4 weeks ago secondary to uterine cancer. This was done in [place]. Her regular prop sawyer is Dr. Vinson here in [facility]. The patient noted some blood when she wiped 2 times now she has not had any heavy bleeding or clots. The patient currently is taking Eliquis and aspirin. Patient is not had any fevers or chills and no other abdominal symptoms. Patient also states she has had some increased bruising in her abdomen she had a clot over 1 of the port sites in her lower abdomen, and the patient inadvertently knocked the scab off of this she developed some bruising around the site. All of the vaginal bleeding the patient noticed was earlier today. Abdomen Pain Score (Numeric/FACES): 4 - Related Data Allergies Allergy/AdvReac Type Severity Reaction Status Date / Time amoxicillin Allergy Hives Verified 01/10/20 00:58 coconut oil Allergy Cannot Verified 01/10/20 00:58 Remember corn Allergy Itching Verified 01/10/20 00:58 doxycycline Allergy Hives Verified 01/10/20 00:58 lithium Allergy Cannot Verified 01/10/20 00:58 Remember Penicillins Allergy Hives Verified 01/10/20 00:58 rofecoxib [From Vioxx] Allergy Cannot Verified 01/10/20 00:58 Remember soy Allergy Itching Verified 01/10/20 00:58 wheat Allergy Cannot Verified 01/10/20 00:58 Remember oats Allergy Itching Uncoded 01/10/20 00:58 Home Meds: Home Meds Acetaminophen [Tylenol Arthritis Pain] 650 mg PO Q8HR PRN 08/08/14 [History] Aspirin [Adult Low Dose Aspirin EC] 81 mg PO DAILY 08/08/14 [History] Calcium Carb, Citrate/Vit D3 [Calcium + D3 ER Tablet] 600 mg PO DAILY 08/08/14 [ History] Furosemide [Lasix] 80 mg PO BID 08/08/14 [History] Multivitamin [Multivitamins] 1 tab PO DAILY 08/08/14 [History] Pantoprazole [Protonix] 40 mg PO DAILY 08/08/14 [History] Polyvinyl Alcohol/Povidone [Refresh Eye Drops] 1 each EYEBOTH DAILY 08/08/14 [ History] Potassium Chloride [Klor-Con M20] 20 meq PO BID 08/08/14 [History] Rosuvastatin [Crestor] 1 tab PO DAILY 08/08/14 [History] Vitamin B Complex 1 tab PO DAILY 08/08/14 [History] allopurinoL [Allopurinol] 0.5 tab PO DAILY 08/08/14 [History] atenoloL [Tenormin] 1 tab PO DAILY 08/08/14 [History] metFORMIN [Glucophage] 250 mg PO BID 08/08/14 [History] Cetirizine [ZyrTEC] 10 mg PO DAILY 11/27/15 [History] Menthol [Biofreeze] 1 applic TP Q4HR PRN 11/27/15 [History] Sennosides/Docusate Sodium [Sennalax-S] 1 tab PO BEDTIME 11/27/15 [History] dilTIAZem HCL [Diltiazem ER] 180 mg PO DAILY 11/27/15 [History] guaiFENesin [Mucinex] 600 mg PO BEDTIME 11/27/15 [History] Gabapentin. 1 cap PO BID 08/07/18 [History] Past Medical History HEENT History: Reports: Allergic Rhinitis, Cataract Cardiovascular History: Reports: Afib, High Cholesterol, Hypertension Other Cardiovascular History: lower leg lymphedema, edema, Hx of Chest Pressure with A-Fib Respiratory History: Reports: Asthma, Sleep Apnea Other Respiratory History: does not use her CPAP Gastrointestinal History: Reports: GERD Musculoskeletal History: Reports: Arthritis, Gout, Osteoarthritis Endocrine/Metabolic History: Reports: Diabetes, Type II Dermatologic History: Reports: Other (See Below) Other Dermatologic History: rash on her abdomen - Past Surgical History HEENT Surgical History: Reports: Cataract Surgery GI Surgical History: Reports: Cholecystectomy, Hernia, Inguinal Female Surgical History: Reports: Hysterectomy Musculoskeletal Surgical History: Reports: Knee Replacement Social & Family History - Tobacco Use Smoking Status *Q: Never Smoker - Caffeine Use Caffeine Use: Reports: None - Recreational Drug Use Recreational Drug Use: No ED ROS GENERAL - Review of Systems Review Of Systems: See Below Constitutional: Reports: No Symptoms HEENT: Reports: No Symptoms Respiratory: Reports: No Symptoms Cardiovascular: Reports: No Symptoms GI/Abdominal: Reports: No Symptoms : Reports: Other (Vaginal bleeding minimal x2) ED EXAM, GENERAL - Physical Exam Exam: See Below Exam Limited By: No Limitations General Appearance: Alert, No Apparent Distress, Obese Respiratory/Chest: No Respiratory Distress, Lungs Clear, Normal Breath Sounds Cardiovascular: Regular Rate, Rhythm, No Murmur GI/Abdominal: Normal Bowel Sounds, Other ([place] she is got some ecchymosis noted at the access port just below her umbilicus she has a large panniculus) (Female) Exam: Normal External Exam, Other (She has a very small amount of bloody discharge noted. Speculum exam was done which reveals a little bit of blood coming from what I believe is the suture line or possibly a biopsy site as the patient did recently have a vaginal biopsy after the hysterectomy. No other abnormalities noted and just a very small amount of blood seen) Back Exam: Normal Inspection. No: CVA Tenderness (L), CVA Tenderness (R) Extremities: Pedal Edema (1+) Course - Vital Signs Last Recorded V/S: Last Vital Signs Temp 36.6 C 01/10/20 00:51 Pulse 92 01/10/20 00:51 Resp 20 01/10/20 00:51 BP 126/59 L 01/10/20 00:51 Pulse Ox 94 L 01/10/20 00:51 - Orders/Labs/Meds Labs: Laboratory Tests 01/10/20 01/10/20 01/10/20 Range/Units 01:20 01:20 01:20 WBC 7.55 (3.98-10.04) K/mm3 RBC 3.64 L (3.98-5.22) M/mm3 Hgb 10.9 L D (11.2-15.7) gm/dl Hct 34.4 (34.1-44.9) % MCV 94.5 D (79.4-94.8) fl MCH 29.9 (25.6-32.2) pg MCHC 31.7 L (32.2-35.5) g/dl RDW Std Deviation 51.0 H (36.4-46.3) fL Plt Count 249 (182-369) K/mm3 MPV 10.4 (9.4-12.3) fl Neut % (Auto) 54.3 (34.0-71.1) % Lymph % (Auto) 31.1 (19.3-51.7) % [place] % (Auto) 10.7 (4.7-12.5) % Eos % (Auto) 3.4 (0.7-5.8) Baso % (Auto) 0.4 (0.1-1.2) % Neut # (Auto) 4.09 (1.56-6.13) K/mm3 Lymph # (Auto) 2.35 (1.18-3.74) K/mm3 [place] # (Auto) 0.81 H (0.24-0.36) K/mm3 Eos # (Auto) 0.26 (0.04-0.36) K/mm3 Baso # (Auto) 0.03 (0.01-0.08) K/mm3 PT 10.4 (9.7-12.0) SECONDS INR 0.95 Sodium 137 (136-145) mEq/L Potassium 2.7 L (3.5-5.1) mEq/L Chloride 94 L (98-107) mEq/L Carbon Dioxide 37 H (21-32) mEq/L Anion Gap 8.7 (5-15) BUN 24 H (7-18) mg/dL Creatinine 1.6 H (0.55-1.02) mg/dL Est Cr Clr Drug Dosing TNP Estimated GFR (MDRD) 32 (>60) mL/min BUN/Creatinine Ratio 15.0 (14-18) Glucose 119 H (80-115) mg/dL Calcium 9.5 (8.5-10.1) mg/dL Total Bilirubin 0.4 (0.2-1.0) mg/dL AST 24 (15-37) U/L ALT 27 (14-59) U/L Alkaline Phosphatase 72 (46-116) U/L Total Protein 7.1 (6.4-8.2) g/dl Albumin 3.4 (3.4-5.0) g/dl Globulin 3.7 gm/dL Albumin/Globulin Ratio 0.9 L (1-2) Urine Color (Yellow) Urine Appearance (Clear) Urine pH (5.0-8.0) Ur Specific [place] (1.005-1.030) Urine Protein (Negative) Urine Glucose (UA) (Negative) Urine Ketones (Negative) Urine Occult Blood (Negative) Urine Nitrite (Negative) Urine Bilirubin (Negative) Urine Urobilinogen (0.2-1.0) Ur Leukocyte Esterase (Negative) 01/10/20 Range/Units 02:15 WBC (3.98-10.04) K/mm3 RBC (3.98-5.22) M/mm3 Hgb (11.2-15.7) gm/dl Hct (34.1-44.9) % MCV (79.4-94.8) fl MCH (25.6-32.2) pg MCHC (32.2-35.5) g/dl RDW Std Deviation (36.4-46.3) fL Plt Count (182-369) K/mm3 MPV (9.4-12.3) fl Neut % (Auto) (34.0-71.1) % Lymph % (Auto) (19.3-51.7) % [place] % (Auto) (4.7-12.5) % Eos % (Auto) (0.7-5.8) Baso % (Auto) (0.1-1.2) % Neut # (Auto) (1.56-6.13) K/mm3 Lymph # (Auto) (1.18-3.74) K/mm3 [place] # (Auto) (0.24-0.36) K/mm3 Eos # (Auto) (0.04-0.36) K/mm3 Baso # (Auto) (0.01-0.08) K/mm3 PT (9.7-12.0) SECONDS INR Sodium (136-145) mEq/L Potassium (3.5-5.1) mEq/L Chloride (98-107) mEq/L Carbon Dioxide (21-32) mEq/L Anion Gap (5-15) BUN (7-18) mg/dL Creatinine (0.55-1.02) mg/dL Est Cr Clr Drug Dosing Estimated GFR (MDRD) (>60) mL/min BUN/Creatinine Ratio (14-18) Glucose (80-115) mg/dL Calcium (8.5-10.1) mg/dL Total Bilirubin (0.2-1.0) mg/dL AST (15-37) U/L ALT (14-59) U/L Alkaline Phosphatase (46-116) U/L Total Protein (6.4-8.2) g/dl Albumin (3.4-5.0) g/dl Globulin gm/dL Albumin/Globulin Ratio (1-2) Urine Color Yellow (Yellow) Urine Appearance Clear (Clear) Urine pH 6.5 (5.0-8.0) Ur Specific [place] 1.020 (1.005-1.030) Urine Protein Negative (Negative) Urine Glucose (UA) Negative (Negative) Urine Ketones Negative (Negative) Urine Occult Blood Negative (Negative) Urine Nitrite Negative (Negative) Urine Bilirubin Negative (Negative) Urine Urobilinogen 0.2 (0.2-1.0) Ur Leukocyte Esterase Negative (Negative) Meds: Medications Discontinued Medications Generic Name Dose Route Start Last Admin Trade Name Jamar PRN Reason Stop Dose Admin Potassium Chloride 40 meq 01/10/20 04:46 Klor-Con M20 PO 01/10/20 04:47 ONETIME ONE - Re-Assessments/Exams Free Text/Narrative Re-Assessment/Exam: 01/10/20 05:03 She did okay here in the emergency room she is feeling fine lab evaluation shows a drop in her hemoglobin hematocrit from the last time it was checked here her H&H was 14.3 and 45.5% respectively now it is 10.9 and 34.4% respectively. I did discuss this with the patient she is on Eliquis recently had surgery this is probably nothing to get alarmed about but I do recommend repeating the CBC in about a week to make be sure it is not trending downward. Patient's potassium is low at 2.7 she will receive 40 mEq p.o. now and then she takes 2 20 mEq a day at home we will increase this to 3 daily for the next 3 days. The patient's gynecologic surgeon would like the patient to follow-up with Dr. Vinson this next week. This was negative leukocyte Estrace or nitrates, no microscopic hematuria 01/10/20 05:19 Departure - Departure Time of Disposition: 05:06 Disposition: Home, Self-Care 01 Clinical Impression: Postoperative vaginal bleeding - Discharge Information Referrals: Eugenio Aguilar MD [Primary Care Provider] - Forms: ED Department Discharge Additional Instructions: Turn to the emergency room with any questions problems or worsening symptoms. Continue your Eliquis and aspirin. Follow-up with Dr. Vinson sometime this week. Increase your potassium to 3 tablets a day on Wednesday and Wednesday then resume normal dosing. It is recommended that you have your potassium and your CBC rechecked in about a week. Sepsis Event Note - Evaluation Sepsis Screening Result: No Definite Risk - Focused Exam Vital Signs: Vital Signs Temp Pulse Resp BP Pulse Ox 01/10/20 00:51 36.6 C 92 20 126/59 L 94 L Date Exam was Performed: 01/10/20 Time Exam was Performed: 05:08
[2020-01-10] MEDS ORDERED: Potassium Chloride 20 MEQ Tab.ER PO ONE (04:46)
== END 2020-01-10 05:59 | disposition home or self-care (01) ==
LOC: JD.ED 00:36
DX: N99.820 Postprocedural hemorrhage of a genitourinary system organ or structure following a genitourinary system procedure (principal); I10 Essential (primary) hypertension; E78.00 Pure hypercholesterolemia, unspecified; I48.91 Unspecified atrial fibrillation; K21.9 Gastro-esophageal reflux disease without esophagitis; E11.9 Type 2 diabetes mellitus without complications; M10.9 Gout, unspecified; Z88.1 Allergy status to other antibiotic agents; Z88.0 Allergy status to penicillin; Z91.018 Allergy to other foods; Z88.8 Allergy status to other drugs, medicaments and biological substances; Z91.048 Other nonmedicinal substance allergy status; Z79.82 Long term (current) use of aspirin; Z79.899 Other long term (current) drug therapy; Z90.710 Acquired absence of both cervix and uterus; Z90.49 Acquired absence of other specified parts of digestive tract; Z98.890 Other specified postprocedural states
CPT/HCPCS: 36415; 80053; 81003; 85025; 85610; 99284; A9270; 99283

== ENCOUNTER 2020-05-13 11:04 | Emergency (ER) | payer MEDICARE, MEDICAID ==
[2020-05-13 11:22] VITALS: BP 153/93; PULSE 154
[2020-05-13] MEDS ORDERED: Sodium Chloride 0.9% 10 ML Syringe FLUSH PRN (11:33)
[2020-05-13] MEDS ORDERED: Diltiazem 50 MG/10 ML SDV IVPUSH ONE (11:34)
[2020-05-13] MEDS ORDERED: Diltiazem 100 MG in Sodium Chloride 0.9% 100 ML IV SCH (11:45)
[2020-05-13] MEDS ORDERED: Sodium Chloride 0.9% 1,000 ML IV SCH (11:45)
--- NOTE | 2020-05-13 13:43 | EDM.PDOC ---
ED HPI GENERAL MEDICAL PROBLEM - General Chief Complaint: Cardiovascular Problem Stated Complaint: SENT FROM [place] Time Seen by Provider: 05/13/20 11:10 Source of Information: Reports: Patient History Limitations: Reports: No Limitations - History of Present Illness INITIAL COMMENTS - FREE TEXT/NARRATIVE: The patient presents with A-fib with RVR. She has a history of this. She was getting an echocardiogram and they could not complete it because her heart was beating so fast. She is in A-fib with RVR. She has no chest pain. In the past when she had this problem she would have chest pain. She has no chest pain today. She has some shortness of breath. She denies fever, chills, cough, congestion, runny nose, abdominal pain, nausea or vomiting. She is on eliquis a nd diltiazem. Onset: Gradual Duration: Hour(s): Severity: Moderate Improves with: Reports: None Worsens with: Reports: None Associated Symptoms: Reports: Shortness of Breath. Denies: Chest Pain, Cough, Fever/Chills, Headaches, Nausea/Vomiting Bilateral Middle Back Pain Score (Numeric/FACES): 5 - Related Data Allergies Allergy/AdvReac Type Severity Reaction Status Date / Time amoxicillin Allergy Hives Verified 05/13/20 11:22 coconut oil Allergy Cannot Verified 05/13/20 11:22 Remember corn Allergy Itching Verified 05/13/20 11:22 doxycycline Allergy Hives Verified 05/13/20 11:22 lithium Allergy Cannot Verified 05/13/20 11:22 Remember Penicillins Allergy Hives Verified 05/13/20 11:22 rofecoxib [From Vioxx] Allergy Cannot Verified 05/13/20 11:22 Remember soy Allergy Itching Verified 05/13/20 11:22 wheat Allergy Cannot Verified 05/13/20 11:22 Remember oats Allergy Itching Uncoded 05/13/20 11:22 Home Meds: Home Meds Acetaminophen [Tylenol Arthritis Pain] 650 mg PO Q8HR PRN 08/08/14 [History] Aspirin [Adult Low Dose Aspirin EC] 81 mg PO DAILY 08/08/14 [History] Calcium Carb, Citrate/Vit D3 [Calcium + D3 ER Tablet] 600 mg PO DAILY 08/08/14 [History] Furosemide [Lasix] 80 mg PO BID 08/08/14 [History] Multivitamin [Multivitamins] 1 tab PO DAILY 08/08/14 [History] Pantoprazole [Protonix] 40 mg PO DAILY 08/08/14 [History] Polyvinyl Alcohol/Povidone [Refresh Eye Drops] 1 each EYEBOTH DAILY 08/08/14 [History] Potassium Chloride [Klor-Con M20] 20 meq PO BID 08/08/14 [History] Rosuvastatin [Crestor] 1 tab PO DAILY 08/08/14 [History] Vitamin B Complex 1 tab PO DAILY 08/08/14 [History] allopurinoL [Allopurinol] 0.5 tab PO DAILY 08/08/14 [History] atenoloL [Tenormin] 1 tab PO DAILY 08/08/14 [History] metFORMIN [Glucophage] 250 mg PO BID 08/08/14 [History] Cetirizine [ZyrTEC] 10 mg PO DAILY 11/27/15 [History] Menthol [Biofreeze] 1 applic TP Q4HR PRN 11/27/15 [History] Sennosides/Docusate Sodium [Sennalax-S] 1 tab PO BEDTIME 11/27/15 [History] dilTIAZem HCL [Diltiazem ER] 180 mg PO DAILY 11/27/15 [History] guaiFENesin [Mucinex] 600 mg PO BEDTIME 11/27/15 [History] Gabapentin. 1 cap PO BID 08/07/18 [History] Diltiazem [Dilacor XR] 180 mg PO DAILY #30 cap.er 05/13/20 [Rx] Past Medical History HEENT History: Reports: Allergic Rhinitis, Cataract Cardiovascular History: Reports: Afib, High Cholesterol, Hypertension Other Cardiovascular History: lower leg lymphedema, edema, Hx of Chest Pressure with A-Fib Respiratory History: Reports: Asthma, Sleep Apnea Other Respiratory History: does not use her CPAP Gastrointestinal History: Reports: GERD Musculoskeletal History: Reports: Arthritis, Gout, Osteoarthritis Endocrine/Metabolic History: Reports: Diabetes, Type II Dermatologic History: Reports: Other (See Below) Other Dermatologic History: rash on her abdomen - Past Surgical History HEENT Surgical History: Reports: Cataract Surgery GI Surgical History: Reports: Cholecystectomy, Hernia, Inguinal Female Surgical History: Reports: Hysterectomy Musculoskeletal Surgical History: Reports: Knee Replacement, Other (See Below) Other Musculoskeletal Surgeries/Procedures:: lump removed from left knee Social & Family History - Tobacco Use Smoking Status *Q: Never Smoker - Caffeine Use Caffeine Use: Reports: None ED ROS GENERAL - Review of Systems Review Of Systems: See Below Constitutional: Reports: No Symptoms HEENT: Reports: No Symptoms Respiratory: Reports: Shortness of Breath. Denies: Cough Cardiovascular: Reports: No Symptoms Endocrine: Reports: No Symptoms GI/Abdominal: Reports: No Symptoms ED EXAM, GENERAL - Physical Exam Exam: See Below Exam Limited By: No Limitations General Appearance: Alert, No Apparent Distress Ears: Normal External Exam Nose: Normal Inspection Head: Atraumatic, Normocephalic Neck: Normal Inspection Respiratory/Chest: No Respiratory Distress, Lungs Clear, Normal Breath Sounds Cardiovascular: Regular Rate, Rhythm, No Edema, No Murmur GI/Abdominal: Soft, Non-Tender, No Organomegaly, No Mass Back Exam: Normal Inspection Extremities: Normal Inspection Course - Vital Signs Last Recorded V/S: Last Vital Signs Temp 96.9 F 05/13/20 11:17 Pulse 154 H 05/13/20 11:17 Resp 24 H 05/13/20 11:17 BP 153/93 H 05/13/20 11:17 Pulse Ox 94 L 05/13/20 11:17 - Orders/Labs/Meds Orders: Active Orders 24 hr Category Date Time Status Cardiac Monitoring [RC] . DIRECTED Care 05/13/20 11:34 Active EKG Documentation Completion [RC] ASDIRECTED Care 05/13/20 11:26 Active Oxygen Therapy [RC] PRN Care 05/13/20 11:34 Active Peripheral IV Care [RC] . DIRECTED Care 05/13/20 11:34 Active Diltiazem [Cardizem] 100 mg Med 05/13/20 11:45 Active Sodium Chloride 0.9% [Normal Saline] 100 ml IV TITRATE Sodium Chloride 0.9% [Normal Saline] 1,000 ml Med 05/13/20 11:45 Active IV ASDIRECTED Sodium Chloride 0.9% [Saline Flush] Med 05/13/20 11:33 Active 10 ml FLUSH ASDIRECTED PRN Peripheral IV Insertion Adult [OM.PC] Stat Oth 05/13/20 11:33 Ordered EKG 12 Lead [EK] Stat Ther 05/13/20 11:25 Ordered Medication Orders Sodium Chloride (Normal Saline) 1,000 mls @ 125 mls/hr IV ASDIRECTED ILA Last Admin: 05/13/20 12:17 Dose: 125 mls/hr Documented by: SOLIS Diltiazem HCl 100 mg/ Sodium (Chloride) 100 mls @ 10 mls/hr IV TITRATE ILA; Protocol Last Titration: 05/13/20 15:48 Dose: 20 mg/hr, 20 mls/hr Documented by: Titration: 05/13/20 14:20 Dose: 15 mg/hr, 15 mls/hr Documented by: Admin: 05/13/20 12:17 Dose: 10 mg/hr, 10 mls/hr Documented by: SOLIS Sodium Chloride (Saline Flush) 10 ml FLUSH ASDIRECTED PRN PRN Reason: Keep Vein Open Last Admin: 05/13/20 12:17 Dose: 10 ml Documented by: SOLIS Labs: Laboratory Tests 05/13/20 05/13/20 Range/Units 12:25 12:25 WBC 9.99 (3.98-10.04) K/mm3 RBC 4.45 (3.98-5.22) M/mm3 Hgb 12.9 D (11.2-15.7) gm/dl Hct 40.6 (34.1-44.9) % MCV 91.2 D (79.4-94.8) fl MCH 29.0 (25.6-32.2) pg MCHC 31.8 L (32.2-35.5) g/dl RDW Std Deviation 48.3 H (36.4-46.3) fL Plt Count 309 (182-369) K/mm3 MPV 10.7 (9.4-12.3) fl Neut % (Auto) 66.1 (34.0-71.1) % Lymph % (Auto) 21.4 (19.3-51.7) % Wells % (Auto) 11.1 (4.7-12.5) % Eos % (Auto) 0.9 (0.7-5.8) Baso % (Auto) 0.3 (0.1-1.2) % Neut # (Auto) 6.60 H (1.56-6.13) K/mm3 Lymph # (Auto) 2.14 (1.18-3.74) K/mm3 Wells # (Auto) 1.11 H (0.24-0.36) K/mm3 Eos # (Auto) 0.09 (0.04-0.36) K/mm3 Baso # (Auto) 0.03 (0.01-0.08) K/mm3 Sodium 138 (136-145) mEq/L Potassium 3.7 (3.5-5.1) mEq/L Chloride 99 (98-107) mEq/L Carbon Dioxide 29 (21-32) mEq/L Anion Gap 13.7 (5-15) BUN 17 (7-18) mg/dL Creatinine 1.5 H (0.55-1.02) mg/dL Est Cr Clr Drug Dosing 25.78 mL/min Estimated GFR (MDRD) 35 (>60) mL/min BUN/Creatinine Ratio 11.3 L (14-18) Glucose 104 (80-115) mg/dL Calcium 9.6 (8.5-10.1) mg/dL Total Bilirubin 0.4 (0.2-1.0) mg/dL AST 16 (15-37) U/L ALT 23 (14-59) U/L Alkaline Phosphatase 84 (46-116) U/L Troponin I < 0.017 (0.00-0.056) ng/mL Total Protein 8.2 (6.4-8.2) g/dl Albumin 3.4 (3.4-5.0) g/dl Globulin 4.8 gm/dL Albumin/Globulin Ratio 0.7 L (1-2) TSH 3rd Generation 1.507 (0.358-3.74) uIU/mL Meds: Medications Generic Name Dose Route Start Last Admin Trade Name Freq PRN Reason Stop Dose Admin Sodium Chloride 1,000 mls @ 125 mls/hr 05/13/20 11:45 05/13/20 12:17 Normal Saline IV 125 mls/hr ASDIRECTED ILA Administration Diltiazem HCl 100 mg/ Sodium 100 mls @ 10 mls/hr 05/13/20 11:45 05/13/20 15:48 Chloride IV 20 mg/hr TITRATE ILA 20 mls/hr Titration Protocol 10 MG/HR Sodium Chloride 10 ml 05/13/20 11:33 05/13/20 12:17 Saline Flush FLUSH 10 ml ASDIRECTED PRN Administration Keep Vein Open Discontinued Medications Generic Name Dose Route Start Last Admin Trade Name Jamar PRN Reason Stop Dose Admin Diltiazem HCl 10 mg 05/13/20 11:34 05/13/20 12:16 Cardizem IVPUSH 05/13/20 11:35 10 mg ONETIME ONE Administration Diltiazem HCl 60 mg 05/13/20 17:37 Cardizem PO 05/13/20 17:38 ONETIME ONE - Re-Assessments/Exams Free Text/Narrative Re-Assessment/Exam: 05/13/20 17:48 I ordered an IV NS 125mL/hr, cardizem bolus of 10mg IV and a drip at 10mg/hr, EKG, and labs. Her EKG shows Atrial fibrillation. Her CBC looks good. Her creatinine is slightly elevated at 1.5. Her troponin is negative. Her TSH looks good. The bolus and drip did slow her down to the 80s and 90s. She is on eliquis. I will up her diltiazem to 180mg daily. Departure - Departure Time of Disposition: 17:55 Disposition: Home, Self-Care 01 Condition: Good Clinical Impression: Atrial fibrillation with RVR Prescriptions: Diltiazem [Dilacor XR] 180 mg PO DAILY #30 cap.er Referrals: Eugenio Aguilar MD [Primary Care Provider] - 1 Week Forms: ED Department Discharge Additional Instructions: Take all of you medications as prescribed except the diltiazem. I have sent a prescription for diltiazem 180mg daily. Follow up with Dr Aguilar this week and please return if you are worse. Sepsis Event Note (ED) - Evaluation Sepsis Screening Result: No Definite Risk - Focused Exam Vital Signs: Vital Signs Temp Pulse Resp BP Pulse Ox 05/13/20 11:17 96.9 F 154 H 24 H 153/93 H 94 L - My Orders Last 24 Hours: My Active Orders 05/13/20 11:25 EKG 12 Lead [EK] Stat 05/13/20 11:26 EKG Documentation Completion [RC] ASDIRECTED 05/13/20 11:33 Sodium Chloride 0.9% [Saline Flush] 10 ml FLUSH ASDIRECTED PRN Peripheral IV Insertion Adult [OM.PC] Stat 05/13/20 11:34 Cardiac Monitoring [RC] . DIRECTED Oxygen Therapy [RC] PRN Peripheral IV Care [RC] . DIRECTED 05/13/20 11:45 Diltiazem [Cardizem] 100 mg Sodium Chloride 0.9% [Normal Saline] 100 ml IV TITRATE Sodium Chloride 0.9% [Normal Saline] 1,000 ml IV ASDIRECTED - Assessment/Plan Last 24 Hours: My Active Orders 05/13/20 11:25 EKG 12 Lead [EK] Stat 05/13/20 11:26 EKG Documentation Completion [RC] ASDIRECTED 05/13/20 11:33 Sodium Chloride 0.9% [Saline Flush] 10 ml FLUSH ASDIRECTED PRN Peripheral IV Insertion Adult [OM.PC] Stat 05/13/20 11:34 Cardiac Monitoring [RC] . DIRECTED Oxygen Therapy [RC] PRN Peripheral IV Care [RC] . DIRECTED 05/13/20 11:45 Diltiazem [Cardizem] 100 mg Sodium Chloride 0.9% [Normal Saline] 100 ml IV TITRATE Sodium Chloride 0.9% [Normal Saline] 1,000 ml IV ASDIRECTED
[2020-05-13] MEDS ORDERED: Diltiazem IR 60 MG Tab PO ONE (17:37)
== END 2020-05-13 18:44 | disposition home or self-care (01) ==
LOC: JD.ED 11:04
DX: I48.91 Unspecified atrial fibrillation (principal); E78.00 Pure hypercholesterolemia, unspecified; I10 Essential (primary) hypertension; J45.909 Unspecified asthma, uncomplicated; K21.9 Gastro-esophageal reflux disease without esophagitis; M19.90 Unspecified osteoarthritis, unspecified site; E11.9 Type 2 diabetes mellitus without complications; M10.9 Gout, unspecified; Z79.84 Long term (current) use of oral hypoglycemic drugs; Z79.899 Other long term (current) drug therapy; Z88.0 Allergy status to penicillin; Z91.018 Allergy to other foods; Z88.1 Allergy status to other antibiotic agents; Z88.8 Allergy status to other drugs, medicaments and biological substances; Z88.6 Allergy status to analgesic agent
CPT/HCPCS: 36415; 80053; 84443; 84484; 85025; 93005; 96361; 96365; 96366; 96376; 99285; A9270; J3490; J7030; J7050; 93010; 99284

== ENCOUNTER 2020-05-17 14:50 | Emergency (ER) | payer MEDICARE, MEDICAID ==
[2020-05-17] MEDS ORDERED: Diltiazem 50 MG/10 ML SDV IVPUSH ONE (15:35)
--- NOTE | 2020-05-17 15:36 | EDM.PDOC ---
ED HPI GENERAL MEDICAL PROBLEM - General Chief Complaint: Cardiovascular Problem Stated Complaint: AFIB SENT BY DR AGUILAR Time Seen by Provider: 05/17/20 15:34 Source of Information: Reports: Patient History Limitations: Reports: No Limitations - History of Present Illness INITIAL COMMENTS - FREE TEXT/NARRATIVE: 70-year-old female presents to the ED at the request of her primary care practitioner Dr. Aguilar. Patient was seen through the ED on Wednesday this week by . Patient had acute exacerbation of her chronic atrial fibrillation with rapid ventricular rate. This was able to be controlled with IV Cardizem and she was discharged with an increase of her oral Cardizem from 120 mg extended release to 180 mg extended release. She is maintained on metoprolol succinate 50 mg once daily. On reevaluation in the clinic today she was found to be once again in rapid ventricular rate up to 140. Upon presentation to the ED she is in the 130s but bounces down to 90s at times as well. She is feeling slightly lightheaded but not dizzy or off balance to fall. She has mild reported central chest discomfort possibly representing angina. She feels perhaps mildly short of breath than normal. She denies fever chills cough or sputum production. She has chronic dependent edema in both lower extremities. Onset: Gradual, Unknown/Unsure (She was not aware that she was in a atrial fibrillation. She states she feels the occasional fluttering in her chest.) Duration: Chronic (Acute on chronic atrial fibrillation with rapid ventricular rate) Location: Reports: Chest (Mild central chest discomfort almost in the pit of her stomach. She does have associated burping and belching first thing in the morning.) Quality: Reports: Ache, Pressure (Mild pressure.) Severity: Mild Improves with: Reports: None Worsens with: Reports: None Context: Denies: Activity, Exercise, Lifting, Sick Contact, Trauma, Other Associated Symptoms: Reports: Chest Pain (Central chest discomfort pit of the stomach lower retrosternal area. She describes as a pressure.), Malaise, Shortness of Breath. Denies: Confusion, Cough, cough w sputum, Diaphoresis, Fever/Chills, Headaches, Loss of Appetite, Nausea/Vomiting (Mild on exertion.), Rash, Seizure, Syncope, Weakness Treatments [employer]: Reports: Other (see below) (Prescribed medications.) Lower Back Pain Score (Numeric/FACES): 5 - Related Data Allergies Allergy/AdvReac Type Severity Reaction Status Date / Time amoxicillin Allergy Hives Verified 05/17/20 15:08 coconut oil Allergy Cannot Verified 05/17/20 15:08 Remember corn Allergy Itching Verified 05/17/20 15:08 doxycycline Allergy Hives Verified 05/17/20 15:08 lithium Allergy Cannot Verified 05/17/20 15:08 Remember Penicillins Allergy Hives Verified 05/17/20 15:08 rofecoxib [From Vioxx] Allergy Cannot Verified 05/17/20 15:08 Remember soy Allergy Itching Verified 05/17/20 15:08 wheat Allergy Cannot Verified 05/17/20 15:08 Remember oats Allergy Itching Uncoded 05/13/20 11:22 Home Meds: Home Meds Acetaminophen [Tylenol Arthritis Pain] 650 mg PO Q8HR PRN 08/08/14 [History] Aspirin [Adult Low Dose Aspirin EC] 81 mg PO DAILY 08/08/14 [History] Calcium Carb, Citrate/Vit D3 [Calcium + D3 ER Tablet] 600 mg PO DAILY 08/08/14 [History] Furosemide [Lasix] 80 mg PO BID 08/08/14 [History] Multivitamin [Multivitamins] 1 tab PO DAILY 08/08/14 [History] Pantoprazole [Protonix] 40 mg PO DAILY 08/08/14 [History] Polyvinyl Alcohol/Povidone [Refresh Eye Drops] 1 each EYEBOTH DAILY 08/08/14 [History] Potassium Chloride [Klor-Con M20] 20 meq PO BID 08/08/14 [History] Rosuvastatin [Crestor] 1 tab PO DAILY 08/08/14 [History] Vitamin B Complex 1 tab PO DAILY 08/08/14 [History] allopurinoL [Allopurinol] 0.5 tab PO DAILY 08/08/14 [History] atenoloL [Tenormin] 1 tab PO DAILY 08/08/14 [History] metFORMIN [Glucophage] 250 mg PO BID 08/08/14 [History] Cetirizine [ZyrTEC] 10 mg PO DAILY 11/27/15 [History] Menthol [Biofreeze] 1 applic TP Q4HR PRN 11/27/15 [History] Sennosides/Docusate Sodium [Sennalax-S] 1 tab PO BEDTIME 11/27/15 [History] dilTIAZem HCL [Diltiazem ER] 180 mg PO DAILY 11/27/15 [History] guaiFENesin [Mucinex] 600 mg PO BEDTIME 11/27/15 [History] Gabapentin. 1 cap PO BID 08/07/18 [History] Diltiazem [Dilacor XR] 180 mg PO DAILY #30 cap.er 05/13/20 [Rx] Digoxin 0.0625 mg PO DAILY #15 ml 05/17/20 [Rx] Past Medical History HEENT History: Reports: Allergic Rhinitis, Cataract Cardiovascular History: Reports: Afib, High Cholesterol, Hypertension Other Cardiovascular History: lower leg lymphedema, edema, Hx of Chest Pressure with A-Fib Respiratory History: Reports: Asthma, Sleep Apnea Other Respiratory History: does not use her CPAP Gastrointestinal History: Reports: GERD Musculoskeletal History: Reports: Arthritis, Gout, Osteoarthritis Endocrine/Metabolic History: Reports: Diabetes, Type II Oncologic (Cancer) History: Reports: Uterine (Diagnosed with stage Ia endometrial carcinoma end of November of this year. She had her uterus and fallopian tubes and both ovaries removed in [facility].) Dermatologic History: Reports: Other (See Below) Other Dermatologic History: rash on her abdomen - Past Surgical History HEENT Surgical History: Reports: Cataract Surgery GI Surgical History: Reports: Cholecystectomy, Hernia, Inguinal Female Surgical History: Reports: Hysterectomy Musculoskeletal Surgical History: Reports: Knee Replacement Other Musculoskeletal Surgeries/Procedures:: Right total knee replacement Social & Family History - Caffeine Use Caffeine Use: Reports: None - Living Situation & Occupation Living situation: Reports: Single Occupation: Retired ED [employer] GENER[facility] - Review of Systems Review Of Systems: See Below Constitutional: Reports: Malaise, Weakness, Fatigue, Decreased Appetite. Denies: Fever, Chills, Weight Loss HEENT: Reports: Glasses (Decreased.) Respiratory: Reports: Shortness of Breath, Cough. Denies: Wheezing, Pleuritic Chest Pain, Sputum (Mild cough nonproductive.), Hemoptysis Cardiovascular: Reports: Chest Pain (Chest discomfort reported as a heaviness or pressure lower retrosternal.), Blood Pressure Problem, Dyspnea on Exertion ( Both lower extremities.), Edema (Mild.), Lightheadedness, Palpitations (Occasional awareness of palpitations.). Denies: Claudication (Is to run a low blood pressure.), Orthopnea Endocrine: Reports: Fatigue GI/Abdominal: Reports: Decreased Appetite (Feels more bloated than normal.), Other ( more gas to burp up in the mornings.). Denies: Abdominal Pain : Reports: Frequency, Incontinence (Urge and stress components.), Urgency Musculoskeletal: Reports: Neck Pain (Patient will), Shoulder Pain, Back Pain (Lesional neck), Joint Pain (Bilateral total knee replacements. Removal of a fatty tumor or lipoma superior to her patella on the left side within the last year.) Skin: Reports: No Symptoms Neurological: Reports: Dizziness, Difficulty Walking. Denies: Confusion, Headache, Numbness, Syncope (Occasional.), Tingling Psychiatric: Reports: No Symptoms (Due to shortness of breath on exertion.) Hematologic/Lymphatic: Reports: No Symptoms Immunologic: Reports: No Symptoms ED EXAM, GENERAL - Physical Exam Exam: See Below Exam Limited By: Uncooperative General Appearance: Alert, WD/WN, No Apparent Distress, Other (Temperature is 36.4. Heart rate is between 90 and 137 and is irregular irregular due to atrial fibrillation. Respiratory to be 18 with O2 sats of 94% room air BP 107/75.) Eye Exam: Bilateral Eye: Normal Inspection, PERRL Throat/Mouth: Normal Inspection, Normal Lips, Normal Oropharynx, Other Head: Atraumatic (Is mildly dry.), Normocephalic Neck: Normal Inspection, Supple, Non-Tender, Limited Range of Motion, Tender Lateral. No: Full Range of Motion, Carotid Bruit, Lymphadenopathy (L) (Bilateral aspect of the cervical spine due to arthritic change.), Lymphadenopathy (R) Respiratory/Chest: No Respiratory Distress, Lungs Clear, Normal Breath Sounds, Respiratory Distress, Decreased Breath Sounds (Mildly decreased air entry to both lower lung [place].). No: Rales, Rhonchi, Wheezing Cardiovascular: No Gallop, No Murmur, No Rub, Irregularly Irregular (Atrial fibrillation on the monitor from 90 to 137/min.). No: Normal Peripheral Pulses, No Edema Peripheral Pulses: 2+: Carotid (L), Carotid (R), Posterior Tibial (L), Posterior Tibial (R), Dorsalis Pedis (L), Dorsalis Pedis (R) GI/Abdominal: Normal Bowel Sounds, Soft, Non-Tender, No Organomegaly, No Mass, Pelvis Stable, Other (Mild tympany to percussion in the epigastrium compatible with some degree of aerophagia.) Back Exam: Decreased Range of Motion, Paraspinal Tenderness, Vertebral Tenderness. No: CVA Tenderness (L), CVA Tenderness (R) (To the lumbar spine bilaterally.), Muscle Spasm (Adjacent to the lumbar spine bilaterally.) Extremities: Pedal Edema (1+ pitting edema both lower extremities. She has good deal of lipedema around the ankles and lower extremities.) Neurological: Alert, Oriented, CN II-XII Intact, Normal Cognition Psychiatric: Normal Affect, Normal Mood Skin Exam: Warm, Dry, Intact, Normal Color, No Rash EKG INTERPRETATION EKG Date: 05/17/20 Time: 16:39 Rhythm: A-Fib Rate (Beats/Min): 76 [place]: LAD-Left Lawton Deviation (-12 degrees) P-Wave: Absent QRS: Other (Initial very poor R wave progression with T wave inversion V1 to V5 consider kentrell septal ischemia. Keturah R wave in lead I consider left ventricular appear to be. There is a near Q wave in leads III and at times in aVF. Consider old inferior wall myocardial infarction.) ST-T: Other (T wave inversion V2 V3 and flattening V4 V5. There are anterior septal ischemia.) QT: Normal EKG Interpretation Comments: Abnormal ECG Course - Vital Signs Last Recorded V/S: Last Vital Signs Temp 36.4 C 05/17/20 15:00 Pulse 109 H 05/17/20 16:55 Resp 18 05/17/20 15:00 BP 119/79 05/17/20 15:00 Pulse Ox 94 L 05/17/20 15:00 - Orders/Labs/Meds Orders: Active Orders 24 hr Category Date Time Status EKG Documentation Completion [RC] STAT Care 05/17/20 15:35 Active Chest 1V Frontal [CR] Stat Exams 05/17/20 15:35 Taken Sodium Chloride 0.9% [Normal Saline] 1,000 ml Med 05/17/20 15:45 Active IV ASDIRECTED Medication Orders Sodium Chloride (Normal Saline) 1,000 mls @ 100 mls/hr IV ASDIRECTED ILA Last Admin: 05/17/20 15:44 Dose: 100 mls/hr Documented by: ESTELITA Labs: Laboratory Tests 05/17/20 05/17/20 05/17/20 Range/Units 13:30 13:30 13:30 WBC 9.87 (3.98-10.04) K/mm3 RBC 4.48 (3.98-5.22) M/mm3 Hgb 12.9 (11.2-15.7) gm/dl Hct 40.2 (34.1-44.9) % MCV 89.7 (79.4-94.8) fl MCH 28.8 (25.6-32.2) pg MCHC 32.1 L (32.2-35.5) g/dl RDW Std Deviation 47.1 H (36.4-46.3) fL Plt Count 273 (182-369) K/mm3 MPV 10.9 (9.4-12.3) fl Neut % (Auto) 65.2 (34.0-71.1) % Lymph % (Auto) 23.0 (19.3-51.7) % Dawes % (Auto) 10.5 (4.7-12.5) % Eos % (Auto) 1.0 (0.7-5.8) Baso % (Auto) 0.2 (0.1-1.2) % Neut # (Auto) 6.43 H (1.56-6.13) K/mm3 Lymph # (Auto) 2.27 (1.18-3.74) K/mm3 Dawes # (Auto) 1.04 H (0.24-0.36) K/mm3 Eos # (Auto) 0.10 (0.04-0.36) K/mm3 Baso # (Auto) 0.02 (0.01-0.08) K/mm3 PT 11.0 (9.7-11.7) SECONDS INR 1.03 APTT 27 (22-31) SECONDS Sodium 137 (136-145) mEq/L Potassium 3.5 (3.5-5.1) mEq/L Chloride 98 (98-107) mEq/L Carbon Dioxide 27 (21-32) mEq/L Anion Gap 15.5 H (5-15) BUN 14 (7-18) mg/dL Creatinine 1.4 H (0.55-1.02) mg/dL Est Cr Clr Drug Dosing 27.63 mL/min Estimated GFR (MDRD) 37 (>60) mL/min BUN/Creatinine Ratio 10.0 L (14-18) Glucose 105 (80-115) mg/dL Calcium 9.7 (8.5-10.1) mg/dL Magnesium 1.6 L (1.8-2.4) mg/dl Total Bilirubin 0.4 (0.2-1.0) mg/dL AST 18 (15-37) U/L ALT 22 (14-59) U/L Alkaline Phosphatase 83 (46-116) U/L CK-MB (CK-2) 0.6 (0-3.6) ng/ml Troponin I < 0.017 (0.00-0.056) ng/mL C-Reactive Protein 5.2 H* (<1.0) mg/dL NT-Pro-B Natriuret Pep (0-125) pg/mL Total Protein 8.1 (6.4-8.2) g/dl Albumin 3.5 (3.4-5.0) g/dl Globulin 4.6 gm/dL Albumin/Globulin Ratio 0.8 L (1-2) 05/17/20 Range/Units 13:30 WBC (3.98-10.04) K/mm3 RBC (3.98-5.22) M/mm3 Hgb (11.2-15.7) gm/dl Hct (34.1-44.9) % MCV (79.4-94.8) fl MCH (25.6-32.2) pg MCHC (32.2-35.5) g/dl RDW Std Deviation (36.4-46.3) fL Plt Count (182-369) K/mm3 MPV (9.4-12.3) fl Neut % (Auto) (34.0-71.1) % Lymph % (Auto) (19.3-51.7) % Dawes % (Auto) (4.7-12.5) % Eos % (Auto) (0.7-5.8) Baso % (Auto) (0.1-1.2) % Neut # (Auto) (1.56-6.13) K/mm3 Lymph # (Auto) (1.18-3.74) K/mm3 Dawes # (Auto) (0.24-0.36) K/mm3 Eos # (Auto) (0.04-0.36) K/mm3 Baso # (Auto) (0.01-0.08) K/mm3 PT (9.7-11.7) SECONDS INR APTT (22-31) SECONDS Sodium (136-145) mEq/L Potassium (3.5-5.1) mEq/L Chloride (98-107) mEq/L Carbon Dioxide (21-32) mEq/L Anion Gap (5-15) BUN (7-18) mg/dL Creatinine (0.55-1.02) mg/dL Est Cr Clr Drug Dosing mL/min Estimated GFR (MDRD) (>60) mL/min BUN/Creatinine Ratio (14-18) Glucose (80-115) mg/dL Calcium (8.5-10.1) mg/dL Magnesium (1.8-2.4) mg/dl Total Bilirubin (0.2-1.0) mg/dL AST (15-37) U/L ALT (14-59) U/L Alkaline Phosphatase (46-116) U/L CK-MB (CK-2) (0-3.6) ng/ml Troponin I (0.00-0.056) ng/mL C-Reactive Protein (<1.0) mg/dL NT-Pro-B Natriuret Pep 1194 H (0-125) pg/mL Total Protein (6.4-8.2) g/dl Albumin (3.4-5.0) g/dl Globulin gm/dL Albumin/Globulin Ratio (1-2) Meds: Medications Generic Name Dose Route Start Last Admin Trade Name Freq PRN Reason Stop Dose Admin Sodium Chloride 1,000 mls @ 100 mls/hr 05/17/20 15:45 05/17/20 15:44 Normal Saline IV 100 mls/hr ASDIRECTED ILA Administration Discontinued Medications Generic Name Dose Route Start Last Admin Trade Name Freq PRN Reason Stop Dose Admin Digoxin 250 mcg 05/17/20 16:28 Lanoxin IVPUSH 05/17/20 16:29 ONETIME ONE Digoxin 500 mcg 05/17/20 16:32 05/17/20 16:55 Lanoxin IVPUSH 05/17/20 16:33 500 mcg ONETIME ONE Administration Diltiazem HCl 5 mg 05/17/20 15:35 05/17/20 15:44 Cardizem IVPUSH 05/17/20 15:36 5 mg ONETIME ONE Administration Furosemide 40 mg 05/17/20 17:00 05/17/20 17:34 Lasix IVPUSH 05/17/20 17:01 40 mg NOW ONE Administration - Radiology Interpretation Free Text/Narrative:: 70-year-old female presents to the ED at the request of her primary care practitioner Dr. Aguilar. Patient presented to the clinic as advised for follow-up after she presented to the ED 5 days ago with acute exacerbation of her chronic atrial fibrillation with rapid ventricular response. She was treated with IV Cardizem and settle down nicely. Dr. Culp then increased her Cardizem from 120 mg extended release to 180 mg CD once daily. In addition of metoprolol succinate 50 mg she takes once daily for rate control. Upon review of the clinic today she was found to be in RVR into the 130s and 140s. She does claim that she has some mild retrosternal chest discomfort and shortness of breath on exertion. Minimal dizziness or lightheadedness. She is appreciated that she has more air to burp and belch first thing in the morning suggesting aerophagia occurring overnight. She does not think her legs are any more swollen than normal. Plan she will have a saline lock placed. She will be given Cardizem 5 mg IV bolus since her heart rate does travel up to the 130s at times. It also is in the 90s at times. Her blood pressure is 107/76. I do not anticipate she would tolerate a higher dose of Cardizem without developing dizziness and lightheadedness. Routine labs including cardiac markers to be obtained. - Re-Assessments/Exams Free Text/Narrative Re-Assessment/Exam: 05/17/20 16:14 heart rate has been primarily below 110 and averages around 100. Blood pressure is 110/80. Chest x-ray has not yet been obtained. ECG has not yet been done either. 05/17/20 16:15 Labs reveal a white count of 9.87 with 65% neutrophils. Hemoglobin is 12.9 with hematocrit of 40.2. Platelet count is 273. 05/17/20 16:29: I did speak with Dr. Aguilar--he agrees that low-dose digoxin would be a suitable treatment plan since she has a very low blood pressure on current medicines i.e. Cardizem and metoprolol. She is unlikely to be able to withstand a higher dose of Cardizem at this time. The plan will be to give her digoxin 0.5 grams IV at this time. She will then be started on oral dose 0.[address] Aguilar reports that on recent CT of the abdomen and pelvis she shows diffuse inflammation surrounding her urinary bladder of unclear etiology. This is of concern since she had a complete hysterectomy and bilateral oophorectomy performed end of November of this year due to endometrial carcinoma graded at stage Ia. Patient has chronic microscopic hematuria. 05/17/20 16:36 chest x-ray reveals she is rotated mildly to the right. Clinically she has mild cardiomegaly. Heart border extends to the left costal margin. No pleural effusion evident. Poor inspiratory effort identified. Perhaps very mild diffuse vascular congestion.Chemistry shows a sodium 137 potassium 3.5. Chloride 90 with a bicarb of 27. Anion gap is 15.5. BUN is 14 with a creatinine of 1.4. Estimated GFR is 37. Glucose 105 with a mag calcium of 9.7. Magnesium slightly low at 1.6. Bilirubin 0.4. AST 18 ALT 22 alk phosphatase is normal at 83. CK-MB is 0.6 with a troponin I of less than 0.017. C-reactive protein is elevated at 5.2. BNP is elevated 1194. Total protein 8.1 with an albumin fraction of 3.5 05/17/20 17:01 Blood pressure is currently 104/70. Heart rate has been almost always under 110/min for the last half an hour. Patient is going to be digitalized with 0.5 mg of digoxin IV and will give Lasix 40 mg IV due to elevated BNP as well. The plan will be to discharge her current medications with the addition of digoxin 0.0625 mg p.o. once daily for heart control 05/17/20 17:31 has been consistently below 100 for the last half hour. Blood pressure remains 90-100 systolic. Patient will be discharged to home with new medication digoxin 0.0625 mg once daily. 05/17/20 17:45 I have discussed the findings with the patient and she agrees. She just got her Lasix IV at this time. Tentatively will discharge her shortly so that she can get home before she has to void. Dr. Aguilar is arranging for follow-up appointments with local leak detection engineer and likely an MRI of her abdomen to ascertain why she has an inflammation posterior bladder wall and pelvis. Departure - Departure Time of Disposition: 17:47 Disposition: Home, Self-Care 01 Reason for Transfer *Q: Other Condition: Fair Clinical Impression: Atrial fibrillation with rapid ventricular response Prescriptions: Digoxin 0.0625 mg PO DAILY #15 ml Referrals: Eugenio Aguilar MD [Primary Care Provider] - Forms: ED Department Discharge Additional Instructions: Evaluation in the emergency room tonight at the request of your primary care provider . Evaluation in the emergency room today in regards to atrial fibrillation which is chronic for you but over the last week or so the rate has become uncontrolled with an elevated rate into the 130s and occasionally at 140. You were therefore treated in the ED with Cardizem 5 mg intravenously to bring the rate under control. However your blood pressure remains on the low side at 105 on the top number. Any further increase the dose of the Cardizem or metoprolol would cause your blood pressure to go too low. Decision made to treat you therefore with digoxin and old-fashioned medication for heart rate control. You are to take 1/2 tablet of 0.125 mg strength once daily. Follow-up is going to be required with Dr. Aguilar in 6 or 7 days. No other changes made to your current medications. Continue the increased dose of Cardizem 180 mg CD preparation once daily that was increased [address] Culp. Evaluation in the emergency room also identified that there was increased fluid building up in your lungs. You therefore received a dose of Lasix 40 mg intravenously in the ED to help remove some of the fluid accumulation caused by rapid heart rate. At this time it is felt that only 1 dose is necessary but Dr. Aguilar will assess this further next week. Sepsis Event Note (ED) - Evaluation Sepsis Screening Result: No Definite Risk - Focused Exam Vital Signs: Vital Signs Temp Pulse Pulse Resp BP Pulse Ox 05/17/20 16:55 109 H 05/17/20 15:00 36.4 C 120 H 18 119/79 94 L - My Orders Last 24 Hours: My Active Orders 05/17/20 15:35 EKG Documentation Completion [RC] STAT Chest 1V Frontal [CR] Stat 10/02/20 15:45 Sodium Chloride 0.9% [Normal Saline] 1,000 ml IV ASDIRECTED - Assessment/Plan Last 24 Hours: My Active Orders 05/17/20 15:35 EKG Documentation Completion [RC] STAT Chest 1V Frontal [CR] Stat 05/17/20 15:45 Sodium Chloride 0.9% [Normal Saline] 1,000 ml IV ASDIRECTED
[2020-05-17] MEDS ORDERED: Sodium Chloride 0.9% 1,000 ML IV SCH (15:45)
[2020-05-17] MEDS ORDERED: Digoxin 500 MCG/2 ML Amp IVPUSH ONE ×2 (16:28→16:32)
[2020-05-17] MEDS ORDERED: Furosemide 40 MG/4 ML VIAL IVPUSH ONE (17:00)
[2020-05-17 18:40] VITALS: BP 140/76; PULSE 92
--- NOTE | 2020-06-21 10:02 | CR ---
PROCEDURE INFORMATION: Exam: XR Chest, 1 View Exam date and time: 05/17/2020 4:08 PM Age: 70 years old Clinical indication: Cardiovascular condition or disease; Congestive heart failure (chf) and other: Atrial fib; Cause unknown; Type unknown TECHNIQUE: Imaging protocol: XR of the chest Views: 1 view. COMPARISON: CR Chest 2V 03/04/2020 5:02 PM FINDINGS: Lungs: Mild atelectatic changes noted within the lung bases. Pleural space: Unremarkable. No pleural effusion. No pneumothorax. Heart/Mediastinum: The heart demonstrates mild diffuse enlargement. Bones/joints: Unremarkable. IMPRESSION: 1. Mild atelectatic changes noted within the lung bases. 2. The heart demonstrates mild diffuse enlargement. Thank you for allowing us to participate in the care of your patient. Dictated and Authenticated by: Danny Loco DO 06/21/2020 9:29 AM Central Time ([place] & [place]) SAMEER
== END 2020-05-17 18:41 | disposition home or self-care (01) ==
LOC: JD.ED 14:50
DX: I48.91 Unspecified atrial fibrillation (principal); E78.00 Pure hypercholesterolemia, unspecified; I10 Essential (primary) hypertension; J45.909 Unspecified asthma, uncomplicated; K21.9 Gastro-esophageal reflux disease without esophagitis; M10.9 Gout, unspecified; E11.9 Type 2 diabetes mellitus without complications; R60.0 Localized edema; Z90.49 Acquired absence of other specified parts of digestive tract; Z90.710 Acquired absence of both cervix and uterus; Z88.1 Allergy status to other antibiotic agents; Z91.018 Allergy to other foods; Z88.0 Allergy status to penicillin; Z88.8 Allergy status to other drugs, medicaments and biological substances; Z79.82 Long term (current) use of aspirin; Z79.899 Other long term (current) drug therapy; Z79.84 Long term (current) use of oral hypoglycemic drugs
CPT/HCPCS: 36415; 71045; 80053; 82553; 83735; 83880; 84484; 85025; 85610; 85730; 86140; 93005; 96361; 96374; 96375; 99285; J1160; J1940; J3490; J7030; 93010

== ENCOUNTER 2020-05-27 16:24 | Emergency (ER) | payer MEDICARE, MEDICAID ==
[2020-05-27 16:38] VITALS: BP 130/77; PULSE 72
--- NOTE | 2020-05-27 19:15 | EDM.PDOC ---
ED HPI GENERAL MEDICAL PROBLEM - General Chief Complaint: TREATING ENGINEER Problem Stated Complaint: HEAVY VAGINAL BLEEDING Time Seen by Provider: 05/27/20 18:27 Source of Information: Reports: Patient, RN Notes Reviewed History Limitations: Reports: No Limitations - History of Present Illness INITIAL COMMENTS - FREE TEXT/NARRATIVE: Patient is a 70-year-old female who presents to the ED for the evaluation of her vaginal bleeding. Patient notes this is been going on since yesterday, and she states it did worsen approximately 1 hour prior to arrival to the ER. She notes that she did have a visit with her TREATING ENGINEER, Dr. Vinson last week, and had a thorough pelvic examination. Dr. Vinson was worried about the possibility of an area that had a stitch that had popped open. She told the patient to be very careful, and to follow-up with her gynecological oncologist that she saw for her hysterectomy in November. Patient notes that over the last day or 2, everything is been going well however she did notice some vaginal bleeding when she got up from the toilet, and states that the bleeding was running down both of her legs. She noticed that it worsened this morning after she went to go put a clean pad on. She is not dizzy or lightheaded at all. She is to see her surgeon in [place] on the May. She denies any fevers or chills, cough or shortness of breath, nausea or vomiting or diarrhea. She states she is experiencing pain with urination, and urinary frequency along with low back pain. Abdominal Pain Score (Numeric/FACES): 8 - Related Data Allergies Allergy/AdvReac Type Severity Reaction Status Date / Time amoxicillin Allergy Hives Verified 05/27/20 16:38 coconut oil Allergy Cannot Verified 05/27/20 16:38 Remember corn Allergy Itching Verified 05/27/20 16:38 doxycycline Allergy Hives Verified 05/27/20 16:38 lithium Allergy Cannot Verified 05/27/20 16:38 Remember Penicillins Allergy Hives Verified 05/27/20 16:38 rofecoxib [From Vioxx] Allergy Cannot Verified 05/27/20 16:38 Remember soy Allergy Itching Verified 05/27/20 16:38 wheat Allergy Cannot Verified 05/27/20 16:38 Remember oats Allergy Itching Uncoded 05/13/20 11:22 Home Meds: Home Meds Acetaminophen [Tylenol Arthritis Pain] 650 mg PO Q8HR PRN 08/08/14 [History] Aspirin [Adult Low Dose Aspirin EC] 81 mg PO DAILY 08/08/14 [History] Calcium Carb, Citrate/Vit D3 [Calcium + D3 ER Tablet] 600 mg PO DAILY 08/08/14 [History] Furosemide [Lasix] 80 mg PO BID 08/08/14 [History] Multivitamin [Multivitamins] 1 tab PO DAILY 08/08/14 [History] Pantoprazole [Protonix] 40 mg PO DAILY 08/08/14 [History] Polyvinyl Alcohol/Povidone [Refresh Eye Drops] 1 each EYEBOTH DAILY 08/08/14 [History] Potassium Chloride [Klor-Con M20] 20 meq PO TID 08/08/14 [History] Rosuvastatin [Crestor] 1 tab PO DAILY 08/08/14 [History] Vitamin B Complex 1 tab PO DAILY 08/08/14 [History] allopurinoL [Allopurinol] 0.5 tab PO DAILY 08/08/14 [History] metFORMIN [Glucophage] 1,000 mg PO BID 08/08/14 [History] Cetirizine [ZyrTEC] 10 mg PO DAILY 11/27/15 [History] Menthol [Biofreeze] 1 applic TP Q4HR PRN 11/27/15 [History] Sennosides/Docusate Sodium [Sennalax-S] 1 tab PO BEDTIME 11/27/15 [History] dilTIAZem HCL [Diltiazem ER] 180 mg PO DAILY 11/27/15 [History] guaiFENesin [Mucinex] 600 mg PO BEDTIME 11/27/15 [History] Diltiazem [Dilacor XR] 180 mg PO DAILY #30 cap.er 05/13/20 [Rx] Digoxin 0.0625 mg PO DAILY #15 ml 05/17/20 [Rx] Apixaban [Eliquis] 5 mg PO BID 05/27/20 [History] Gabapentin [Neurontin] 300 mg PO BID 05/27/20 [History] Metoprolol Succinate 50 mg pe PO DAILY 05/27/20 [History] Nitroglycerin [Nitrostat] 0.4 mg SL ASDIRECTED 05/27/20 [History] Simethicone 80 mg PO ASDIRECTED PRN 05/27/20 [History] metOLazone [Metolazone] 1 tab PO ASDIRECTED 05/27/20 [History] Past Medical History HEENT History: Reports: Allergic Rhinitis, Cataract Cardiovascular History: Reports: Afib, High Cholesterol, Hypertension Other Cardiovascular History: lower leg lymphedema, edema, Hx of Chest Pressure with A-Fib Respiratory History: Reports: Asthma, Sleep Apnea Other Respiratory History: does not use her CPAP Gastrointestinal History: Reports: GERD Musculoskeletal History: Reports: Arthritis, Gout, Osteoarthritis Endocrine/Metabolic History: Reports: Diabetes, Type II Oncologic (Cancer) History: Reports: Uterine Dermatologic History: Reports: Other (See Below) Other Dermatologic History: rash on her abdomen - Past Surgical History HEENT Surgical History: Reports: Cataract Surgery GI Surgical History: Reports: Cholecystectomy, Hernia, Inguinal Female Surgical History: Reports: Hysterectomy Musculoskeletal Surgical History: Reports: Knee Replacement Other Musculoskeletal Surgeries/Procedures:: Right total knee replacement Social & Family History - Tobacco Use Smoking Status *Q: Never Smoker Second Hand Smoke Exposure: No - Caffeine Use Caffeine Use: Reports: Tea - Recreational Drug Use Recreational Drug Use: No - Living Situation & Occupation Living situation: Reports: Single Occupation: Retired ED ROS GENERAL - Review of Systems Review Of Systems: Comprehensive ROS is negative, except as noted in HPI. ED EXAM, RENAL/ - Physical Exam Exam: See Below Exam Limited By: No Limitations General Appearance: Alert, WD/WN, No Apparent Distress Respiratory/Chest: No Respiratory Distress, Lungs Clear, Normal Breath Sounds, No Accessory Muscle Use, Chest Non-Tender Cardiovascular: Normal Peripheral Pulses, Regular Rate, Rhythm, No Murmur GI/Abdominal: Normal Bowel Sounds, Soft, No Distention, No Mass, Tender (LLQ mainly) (Female) Exam: Vaginal Bleeding (scant amount noted at vaginal opening) Extremities: Normal Inspection, Normal Capillary Refill Neurological: Alert, Oriented, Normal Cognition, No Motor/Sensory Deficits Psychiatric: Normal Affect, Normal Mood Skin Exam: Warm, Dry, Intact, Normal Color, No Rash Course - Vital Signs Last Recorded V/S: Last Vital Signs Temp 97.0 F 05/27/20 16:32 Pulse 72 05/27/20 16:32 Resp 18 05/27/20 16:32 BP 130/77 05/27/20 16:32 Pulse Ox 94 L 10/12/20 16:32 - Orders/Labs/Meds Orders: Active Orders 24 hr Category Date Time Status CBC WITH AUTO DIFF [HEME] Stat Lab 05/27/20 19:16 Ordered Labs: Laboratory Tests 05/27/20 05/27/20 05/27/20 Range/Units 17:17 19:47 19:47 WBC 10.37 H (3.98-10.04) K/mm3 RBC 4.38 (3.98-5.22) M/mm3 Hgb 12.6 (11.2-15.7) gm/dl Hct 38.3 (34.1-44.9) % MCV 87.4 (79.4-94.8) fl MCH 28.8 (25.6-32.2) pg MCHC 32.9 (32.2-35.5) g/dl RDW Std Deviation 46.1 (36.4-46.3) fL Plt Count 318 (182-369) K/mm3 MPV 11.4 (9.4-12.3) fl Neut % (Auto) 63.5 (34.0-71.1) % Lymph % (Auto) 24.2 (19.3-51.7) % [place] % (Auto) 9.8 (4.7-12.5) % Eos % (Auto) 2.1 (0.7-5.8) Baso % (Auto) 0.3 (0.1-1.2) % Neut # (Auto) 6.58 H (1.56-6.13) K/mm3 Lymph # (Auto) 2.51 (1.18-3.74) K/mm3 [place] # (Auto) 1.02 H (0.24-0.36) K/mm3 Eos # (Auto) 0.22 (0.04-0.36) K/mm3 Baso # (Auto) 0.03 (0.01-0.08) K/mm3 PT 11.8 H (9.7-11.7) SECONDS INR 1.10 APTT 29 (22-31) SECONDS Urine Color Red H (Yellow) Urine Appearance Turbid H (Clear) Urine pH 5.5 (5.0-8.0) Ur Specific [place] 1.020 (1.005-1.030) Urine Protein 2+ H (Negative) Urine Glucose (UA) Negative (Negative) Urine Ketones Trace H (Negative) Urine Occult Blood 3+ H (Negative) Urine Nitrite Negative (Negative) Urine Bilirubin 1+ H (Negative) Urine Urobilinogen 0.2 (0.2-1.0) Ur Leukocyte Esterase Negative (Negative) Urine RBC Too numerous to cnt H (0-5) /hpf Urine WBC Not seen (0-5) /hpf Ur Epithelial Cells Not seen (0-5) /hpf Urine Bacteria Not seen (FEW) /hpf Urine Mucus Not seen (FEW) /hpf - Re-Assessments/Exams Free Text/Narrative Re-Assessment/Exam: 05/27/20 19:18 Patient presents to the ER for her vaginal bleeding. As by history she is a very difficult pelvic exam, I myself do not feel quite comfortable performing this by myself. I did call Dr. Silvia Santizo her TREATING ENGINEER for this area, and she states this would be fine to see how heavy she is bleeding on the pad, and order to have her push her follow-up with Dr. Owens sooner rather than later in May. Dr. Vinson also stated that she does not in fact have a stitch popped open, that she is at risk for that due to obesity and otherwise. I think the patient misunderstood Dr. Vinson when she examined her last week. I have ordered CBC, and coagulation studies for further management. The patient's vitals are stable at this time, and I do not believe she would be unstable enough to necessitate transfer for further evaluation and management. 05/27/20 19:55 The patient would rather not have a pelvic exam done at today's visit. She states that she has changed only 1 pad while being in the ER, and that only the middle was blood-tinged. She will to follow-up with Dr. Owens, per Dr. Vinson's recommendation sooner rather than later. She will be in contact with her office tomorrow to get her appointment moved up. I did go over causes for concern to return to the ER with the patient, such as low blood pressure, lightheadedness or dizziness with standing. Patient verbalized understanding. 05/27/20 20:15 Urinalysis demonstrates no sign of infection, there is quite a bit of blood again, but this does appear to be most likely coming from the vagina. Patient's blood count is normal, and coags are acceptable. Patient will be discharged home with general recommendations. Departure - Departure Time of Disposition: 20:15 Disposition: Home, Self-Care 01 Condition: Good Clinical Impression: Abnormal vaginal bleeding in postmenopausal patient - Discharge Information *PRESCRIPTION DRUG MONITORING PROGRAM REVIEWED*: No *COPY OF PRESCRIPTION DRUG MONITORING REPORT IN PATIENT CALI: No Instructions: Abnormal Uterine Bleeding, [id number] Referrals: Eugenio Aguilar MD [Primary Care Provider] - Forms: ED Department Discharge Additional Instructions: You were evaluated in the ER today for your vaginal bleeding. Your urinalysis was unremarkable for any obvious infection, your blood work was also within normal limits, and your hemoglobin level was also within normal limits, you have not lost too much blood from the amount of bleeding you are having. Recommend that you do not lift anything heavier than a gallon of milk (5 lbs) and try to get as much pelvic rest as possible for the next few days. Please try not to exert yourself, rest and relax, and take it easy. If you are bleeding through more than 1-2 maxi pads every couple hours, this would be cause for concern to return to the ER for immediate management. Please follow up with your TREATING ENGINEER at your next scheduled appointment. Dr. Santizo was consulted on your case, and she does recommend that you get in so sanket to see your gynecological oncologist Dr. Owens in [place] if possible. Please return to the ED at any time if your symptoms change or worsen. Sepsis Event Note (ED) - Evaluation Sepsis Screening Result: No Definite Risk - Focused Exam Vital Signs: Vital Signs Temp Pulse Resp BP Pulse Ox 05/27/20 16:32 97.0 F 72 18 130/77 94 L - My Orders Last 24 Hours: My Active Orders 05/27/20 19:16 CBC WITH AUTO DIFF [HEME] Stat - Assessment/Plan Last 24 Hours: My Active Orders 05/27/20 19:16 CBC WITH AUTO DIFF [HEME] Stat
== END 2020-05-27 20:37 | disposition home or self-care (01) ==
LOC: JD.ED 16:24
DX: N95.0 Postmenopausal bleeding (principal); K21.9 Gastro-esophageal reflux disease without esophagitis; E11.9 Type 2 diabetes mellitus without complications; I48.91 Unspecified atrial fibrillation; E78.00 Pure hypercholesterolemia, unspecified; I10 Essential (primary) hypertension; M10.9 Gout, unspecified; J45.909 Unspecified asthma, uncomplicated; Z79.82 Long term (current) use of aspirin; Z79.84 Long term (current) use of oral hypoglycemic drugs; Z79.01 Long term (current) use of anticoagulants; Z79.899 Other long term (current) drug therapy; Z88.8 Allergy status to other drugs, medicaments and biological substances; Z88.0 Allergy status to penicillin; Z88.1 Allergy status to other antibiotic agents; Z91.018 Allergy to other foods
CPT/HCPCS: 36415; 81001; 85025; 85610; 85730; 99284

== ENCOUNTER 2020-07-30 16:01 | Emergency (ER) | payer MEDICARE, MEDICAID ==
--- NOTE | 2020-07-30 16:08 | PCM.HP.2 ---
H&P History of Present Illness - General Date of Service: 07/30/20 - Related Data Allergies/Adverse Reactions: Allergies Allergy/AdvReac Type Severity Reaction Status Date / Time amoxicillin Allergy Hives Verified 05/27/20 16:38 coconut oil Allergy Cannot Verified 05/27/20 16:38 Remember corn Allergy Itching Verified 05/27/20 16:38 doxycycline Allergy Hives Verified 05/27/20 16:38 lithium Allergy Cannot Verified 05/27/20 16:38 Remember Penicillins Allergy Hives Verified 05/27/20 16:38 rofecoxib [From Vioxx] Allergy Cannot Verified 05/27/20 16:38 Remember soy Allergy Itching Verified 05/27/20 16:38 wheat Allergy Cannot Verified 05/27/20 16:38 Remember oats Allergy Itching Uncoded 05/13/20 11:22 Home Medications: Home Meds Acetaminophen [Tylenol Arthritis Pain] 650 mg PO Q8HR PRN 08/08/14 [History] Aspirin [Adult Low Dose Aspirin EC] 81 mg PO DAILY 08/08/14 [History] Calcium Carb, Citrate/Vit D3 [Calcium + D3 ER Tablet] 600 mg PO DAILY 08/08/14 [History] Furosemide [Lasix] 80 mg PO BID 08/08/14 [History] Multivitamin [Multivitamins] 1 tab PO DAILY 08/08/14 [History] Pantoprazole [Protonix] 40 mg PO DAILY 08/08/14 [History] Polyvinyl Alcohol/Povidone [Refresh Eye Drops] 1 each EYEBOTH DAILY 08/08/14 [History] Potassium Chloride [Klor-Con M20] 20 meq PO TID 08/08/14 [History] Rosuvastatin [Crestor] 1 tab PO DAILY 08/08/14 [History] Vitamin B Complex 1 tab PO DAILY 08/08/14 [History] allopurinoL [Allopurinol] 0.5 tab PO DAILY 08/08/14 [History] metFORMIN [Glucophage] 1,000 mg PO BID 08/08/14 [History] Cetirizine [ZyrTEC] 10 mg PO DAILY 11/27/15 [History] Menthol [Biofreeze] 1 applic TP Q4HR PRN 11/27/15 [History] Sennosides/Docusate Sodium [Sennalax-S] 1 tab PO BEDTIME 11/27/15 [History] dilTIAZem HCL [Diltiazem ER] 180 mg PO DAILY 11/27/15 [History] guaiFENesin [Mucinex] 600 mg PO BEDTIME 11/27/15 [History] Diltiazem [Dilacor XR] 180 mg PO DAILY #30 cap.er 05/13/20 [Rx] Digoxin 0.0625 mg PO DAILY #15 ml 05/17/20 [Rx] Apixaban [Eliquis] 5 mg PO BID 05/27/20 [History] Gabapentin [Neurontin] 300 mg PO BID 05/27/20 [History] Metoprolol Succinate 50 mg pe PO DAILY 05/27/20 [History] Nitroglycerin [Nitrostat] 0.4 mg SL ASDIRECTED 05/27/20 [History] Simethicone 80 mg PO ASDIRECTED PRN 05/27/20 [History] metOLazone [Metolazone] 1 tab PO ASDIRECTED 05/27/20 [History] Past Medical History HEENT History: Reports: Allergic Rhinitis, Cataract Cardiovascular History: Reports: Afib, High Cholesterol, Hypertension Other Cardiovascular History: lower leg lymphedema, edema, Hx of Chest Pressure with A-Fib Respiratory History: Reports: Asthma, Sleep Apnea Other Respiratory History: does not use her CPAP Gastrointestinal History: Reports: GERD Musculoskeletal History: Reports: Arthritis, Gout, Osteoarthritis Endocrine/Metabolic History: Reports: Diabetes, Type II Oncologic (Cancer) History: Reports: Uterine Dermatologic History: Reports: Other (See Below) Other Dermatologic History: rash on her abdomen - Past Surgical History HEENT Surgical History: Reports: Cataract Surgery GI Surgical History: Reports: Cholecystectomy, Hernia, Inguinal Female Surgical History: Reports: Hysterectomy Musculoskeletal Surgical History: Reports: Knee Replacement Other Musculoskeletal Surgeries/Procedures:: Right total knee replacement Social & Family History - Caffeine Use Caffeine Use: Reports: Tea - Living Situation & Occupation Living situation: Reports: Single Occupation: Retired
--- NOTE | 2020-07-30 16:19 | EDM.PDOC ---
ED HPI GENERAL MEDICAL PROBLEM - General Chief Complaint: Trauma Stated Complaint: [facility] Time Seen by Provider: 07/30/20 16:13 Source of Information: Reports: Patient History Limitations: Reports: No Limitations - History of Present Illness INITIAL COMMENTS - FREE TEXT/NARRATIVE: 70-year-old female presents to the ED per [facility] after falling at home in her own kitchen. She states she is weak from chemotherapy and also having a lot of pain from corns on the sole of her right foot. It caused her to fall and she struck the floor hard with her face injuring her right zygoma zygoma and right forehead. There was a lot of bleeding from the wounds because she is on Eliquis daily. Onset: Today, Sudden Onset Date: 07/30/20 Onset Time: 15:20 Duration: Minutes: Location: Reports: Head, Face, Lower Extremity, Left, Lower Extremity, Right (Left knee right knee) Quality: Reports: Ache, Other (Leading from abrasion) Severity: Moderate (Superficial laceration right forehead) Improves with: Reports: Other (Rec pressure on the forehead wound has stopped the bleeding.) Worsens with: Reports: None Context: Reports: Trauma (Got tripped up and fell in her kitchen at home doing a header into the floor with her face first.). Denies: Activity, Exercise, Lifting, Sick Contact Associated Symptoms: Denies: Confusion, Chest Pain, Cough, cough w sputum, Fever/Chills, Headaches, Loss of Appetite, Malaise, Rash, Seizure, Syncope Treatments [employer]: Reports: Other (see below) (None.) Face/Facial Pain Score (Numeric/FACES): 8 - Related Data Allergies Allergy/AdvReac Type Severity Reaction Status Date / Time amoxicillin Allergy Severe Hives Verified 07/30/20 16:27 coconut oil Allergy Severe Cannot Verified 07/30/20 16:27 Remember corn Allergy Severe Itching Verified 07/30/20 16:27 doxycycline Allergy Severe Hives Verified 07/30/20 16:27 lithium Allergy Severe Cannot Verified 07/30/20 16:27 Remember Penicillins Allergy Severe Hives Verified 07/30/20 16:27 rofecoxib [From Vioxx] Allergy Severe Cannot Verified 07/30/20 16:27 Remember soy Allergy Severe Itching Verified 07/30/20 16:27 wheat Allergy Severe Cannot Verified 07/30/20 16:27 Remember oats Allergy Severe Itching Uncoded 07/30/20 16:27 Home Meds: Home Meds Acetaminophen [Tylenol Arthritis Pain] 650 mg PO Q8HR PRN 08/08/14 [History] Calcium Carb, Citrate/Vit D3 [Calcium + D3 ER Tablet] 600 mg PO DAILY 08/08/14 [History] Furosemide [Lasix] 40 mg PO DAILY 08/08/14 [History] Pantoprazole [Protonix] 40 mg PO DAILY 08/08/14 [History] Polyvinyl Alcohol/Povidone [Refresh Eye Drops] 1 each EYEBOTH DAILY PRN 08/08/14 [History] Potassium Chloride [Klor-Con M20] 20 meq PO TID 08/08/14 [History] Rosuvastatin [Crestor] 5 mg PO DAILY 08/08/14 [History] Vitamin B Complex 1 tab PO DAILY 08/08/14 [History] allopurinoL [Allopurinol] 150 tab PO DAILY 08/08/14 [History] Cetirizine [ZyrTEC] 10 mg PO DAILY 11/27/15 [History] Sennosides/Docusate Sodium [Sennalax-S] 2 tab PO BEDTIME 11/27/15 [History] dilTIAZem HCL [Diltiazem ER] 180 mg PO DAILY 11/27/15 [History] Digoxin 0.0625 mg PO DAILY #15 ml 05/17/20 [Rx] Apixaban [Eliquis] 5 mg PO BID 05/27/20 [History] Gabapentin [Neurontin] 300 mg PO BID 05/27/20 [History] Metoprolol Succinate 50 mg pe PO DAILY 05/27/20 [History] Nitroglycerin [Nitrostat] 0.4 mg SL ASDIRECTED 05/27/20 [History] Simethicone 80 mg PO ASDIRECTED PRN 05/27/20 [History] Albuterol Sulfate 2.5 mg PO QID PRN 07/30/20 [History] Hydrocodone/Acetaminophen [Hydrocodone-Acetamin 10-325 mg] 1 tab PO Q6H PRN 07/30/20 [History] Ketoconazole [Nizoral 2% Crm] 1 applic TOP ASDIRECTED 07/30/20 [History] Multivitamin with Minerals [Multivitamins with Minerals] 1 tab PO DAILY 07/30/20 [History] OLANZapine [Olanzapine] 10 mg PO ASDIRECTED 07/30/20 [History] Ondansetron [Zofran] 4 mg PO Q6H PRN 07/30/20 [History] Ondansetron [Zofran] 8 mg PO TID PRN 07/30/20 [History] Prochlorperazine [Compazine] 10 mg PO QID PRN 07/30/20 [History] Promethazine HCl/Codeine [Prometh-Codein 6.25-10 mg/5 ml] 15 ml PO Q4H PRN 07/30/20 [History] Spironolactone [Aldactone] 25 mg PO DAILY 07/30/20 [History] Tacrolimus [Protopic] 1 applic TOP ASDIRECTED 07/30/20 [History] dexAMETHasone [Dexamethasone] 8 mg PO ASDIRECTED 07/30/20 [History] diphenhydrAMINE [Benadryl] 25 mg PO ASDIRECTED 07/30/20 [History] Past Medical History HEENT History: Reports: Allergic Rhinitis, Cataract Cardiovascular History: Reports: Afib, High Cholesterol, Hypertension Other Cardiovascular History: lower leg lymphedema, edema, Hx of Chest Pressure with A-Fib. With her 50 pound weight loss she is now down to 80 mg of Lasix once daily in the morning instead of twice daily with Aldactone use to minimize potassium losses. Respiratory History: Reports: Asthma, Sleep Apnea Other Respiratory History: does not use her CPAP Gastrointestinal History: Reports: GERD Musculoskeletal History: Reports: Arthritis, Gout, Osteoarthritis Endocrine/Metabolic History: Reports: Diabetes, Type II (Patient is currently lost 50 pounds since diagnosis of cancer of the uterus in November. She is currently now off of her Metformin.) Oncologic (Cancer) History: Reports: Uterine (With cancer of the uterus in early November 2019 by endometrial biopsy. She then went to [place] to have total abdominal hysterectomy and BSO. This was complicated by the development of atrial fibrillation with rapid ventricular rate about a half an hour prepped for proposed surgery. This of course delayed the surgery for period of time. Since that time the patient has been on Eliquis for atrial fibrillation. Patient is currently receiving chemotherapy every 3 weeks with the next treatment due 07 August. Early there is residual tumor mass above her bladder down in the pelvis. She is experiencing intermittent bleeding per vagina presumably from perforation of the vaginal cuff for at least involvement with tumor.) Dermatologic History: Reports: Other (See Below) Other Dermatologic History: rash on her abdomen - Past Surgical History HEENT Surgical History: Reports: Cataract Surgery GI Surgical History: Reports: Cholecystectomy, Hernia, Inguinal Female Surgical History: Reports: Hysterectomy Musculoskeletal Surgical History: Reports: Knee Replacement Other Musculoskeletal Surgeries/Procedures:: Right total knee replacement Social & Family History - Caffeine Use Caffeine Use: Reports: Tea - Living Situation & Occupation Living situation: Reports: Single Occupation: Retired Review of Systems - Review of Systems Review Of Systems: See Below Constitutional: Reports: No Symptoms Eyes: Reports: Other (She wears glasses normally.) Ears: Reports: No Symptoms Nose: Reports: Other (Believes she was bleeding a bit from her right nares after the fall.) Mouth/Throat: Reports: Other Respiratory: Reports: Shortness of Breath (Has been having some problems with development of oral candidiasis from chemotherapy.) Cardiovascular: Denies: Chest Pain, Edema, Irregular Heart Rate, Syncope, Other GI/Abdominal: Reports: Other Genitourinary: Reports: Other Musculoskeletal: Reports: Neck Pain, Shoulder Pain (His knees have been retotally replaced.), Back Pain (Frequency occasional incontinence mostly of urge component.), Joint Pain Skin: Reports: Bruising Neurological: Reports: Dizziness, Headache, Difficulty Walking (Due to pain in her right foot with numerous corns sole of right foot. She is recently also had the fourth and fifth toenails removed due to being ingrown by podiatry a week ago. This is on her right foot.). Denies: Confusion (This is easily as she is on Eliquis.), Numbness, Seizure, Syncope, Tingling, Weakness Psychiatric: Reports: No Symptoms ED EXAM, GENERAL - Physical Exam Exam: See Below Exam Limited By: No Limitations General Appearance: Alert, WD/WN, No Apparent Distress, Other (Temperature is 36.2. Heart rate was 75 and irregular regular. Respiratory it is 20 with O2 sats of 95% on room air. BP 109 on 67.) Eye Exam: Right Eye: Other (Patient is developing some ecchymoses of her right upper eyebrow and superior orbital ridge. There is also swelling and tenderness over the zygomatic process inferior lateral to the right eye. Hematoma right), Bilateral Eye: PERRL Ears: Normal TMs Nose: Other (Blood in the right nares. Nares no nasal deformity. No nasal ) Throat/Mouth: Normal Inspection (hematoma.), Normal Lips, Normal Teeth, Normal Oropharynx, Other (Has no evidence of oral candidiasis on my exam. There is no obvious dentition) Head: Other ( or tongue injury. She only has a few upper teeth left. 4 cm hematoma above her right eyebrow with a large) Neck: Normal Inspection ( superficial abrasion measuring 2 cm in diameter that has been actively bleeding. Firm compression has brought the bleeding under control.), Supple, Non-Tender, Full Range of Motion, Other (Patient has a healing central venous line insertion site right supraclavicular fossa that is healing well with no signs of infection.). No: Lymphadenopathy (L), Lymphadenopathy (R) Respiratory/Chest: No Respiratory Distress, Lungs Clear, Normal Breath Sounds, No Accessory Muscle Use (He has full unopposed range of motion of her cervical spine.), Other (To be tender over the mid) Cardiovascular: Normal Peripheral Pulses, No Edema, No Gallop, No Murmur ( right clavicle without any obvious deformity.), No Rub, Irregularly Irregular (Patient is atrial fibrillation in the 80s.), Other Peripheral Pulses: 2+: Carotid (L), Carotid (R), Posterior Tibial (L), Posterior Tibial (R), Dorsalis Pedis (L), Dorsalis Pedis (R) GI/Abdominal: Normal Bowel Sounds, Soft, Non-Tender, No Organomegaly, No Abnormal Bruit, No Mass, Pelvis Stable, Other (Mildly obese. This limits ability to palpate solid organs.) Back Exam: Normal Inspection, Full Range of Motion. No: CVA Tenderness (L), CVA Tenderness (R) Extremities: Other (Patient has mild bruises over both anterior knees which show midline incisions from total knee replacements. She has normal flexion extension at the knee and fairly normal internal and external rotation of both hips without evidence of pelvic injury. Brandie upper extremities show no obvious injuries to her fingers hands wrists elbows and she can raise both arms above her head without any issues.) Neurological: Alert, Oriented, CN II-XII Intact, Normal Cognition Psychiatric: Normal Affect, Anxious Skin Exam: Warm, Dry, Intact, Ecchymosis (Right face particular over the zygomatic process and right forehead above her right eyebrow.) Course - Vital Signs Last Recorded V/S: Last Vital Signs Temp 36.2 C 07/30/20 17:02 Pulse 75 07/30/20 17:02 Resp 20 07/30/20 17:02 BP 109/69 07/30/20 17:02 Pulse Ox 95 07/30/20 17:02 - Orders/Labs/Meds Orders: Active Orders 24 hr Category Date Time Status Clavicle Rt [CR] Stat Exams 07/30/20 16:24 Taken - Radiology Interpretation Free Text/Narrative:: 70-year-old female presents to the ED after a fall at home this afternoon. She states she got tripped up and fell face first onto the floor. This caused a 4 cm hematoma to form above her right eyebrow with a superficial laceration abrasion in this area which was very actively bleeding on scene but has now stopped. Patient is on Eliquis daily due to being in atrial fibrillation. She suffered zygoma trauma to the right side with tenderness. Temporomandibular joint intact mandible intact no injury to the nose or maxilla evident. No oropharyngeal injuries. She has full unopposed range of motion of her cervical spine. Some tenderness over the right clavicle appreciated exam and this will be x-rayed. She will require maxillofacial and CT exams to be done due to being on Eliquis with significant mid face and right forehead trauma. - Re-Assessments/Exams Free Text/Narrative Re-Assessment/Exam: 07/30/20 16:59 CT of the head reveals prominent sulci and slightly dilated ventricles compared with the patient's age. Diffuse small vessel ischemic change appreciated in both basal ganglia. No lacunar infarcts identified. No intracranial bleeding or mass-effect identified. Mild generalized atrophy and so-called internal frontal hyperostosis which is a normal variant for patient's age. There is a calcium deposit in the left lobe of the posterior cerebellum of unclear significance. Maxillofacial bone CT reveals no fractures in the periorbital tissues or right maxillary sinus or zygoma. 07/30/20 17:25 patient will tentatively be discharged from the ED. Her wound on her forehead is more of an abrasion skin tear with nothing really to suture. It would require daily cleanse with soap and water and then application of topical antibiotic such as bacitracin or Polysporin. Patient was advised ice packs to sore areas however she states that she cannot do this as she feels too cold all of the time. Departure - Departure Time of Disposition: 17:27 Disposition: Home, Self-Care 01 Condition: Fair Clinical Impression: Contusion of face Qualifiers: Encounter type: initial encounter Qualified Code(s): S00.83XA - Contusion of other part of head, initial encounter Abrasion of forehead Qualifiers: Encounter type: initial encounter Qualified Code(s): S00.81XA - Abrasion of other part of head, initial encounter - Discharge Information *PRESCRIPTION DRUG MONITORING PROGRAM REVIEWED*: Not Applicable *COPY OF PRESCRIPTION DRUG MONITORING REPORT IN PATIENT CALI: Not Applicable Instructions: Abrasion, Contusion Referrals: Eugenio Aguilar MD [Primary Care Provider] - Forms: ED Department Discharge Additional Instructions: Evaluation in the emergency room today in regards to injuries to your right forehead and right facial cheek and right collarbone due to fall in the kitchen at home today. The fall resulted in a deep abrasion and hematoma right forehead measuring approximately 4 cm in diameter. The skin tear on the forehead has left me with were nothing to really suture. The wound required a pressure dressing to stop the bleeding due to being on Eliquis. You have a bruise developing approximately 2 cm in diameter over your right zygoma or facial cheek bone. CT of the maxillofacial sinuses and or bones of the face as well as bones of the head and the brain did not reveal any intracranial bleeding or fractures in the face or skull. X-rays of your right collarbone also do not reveal any broken bones in this area. The wound on your right forehead requires daily cleanse with soap and water. Showering is okay. Then apply topical antibiotic such as bacitracin or Polysporin to the wound once daily until healed. Sepsis Event Note (ED) - Focused Exam Vital Signs: Vital Signs Temp Pulse Resp BP Pulse Ox 07/30/20 17:02 36.2 C 75 20 109/69 95 - My Orders Last 24 Hours: My Active Orders 07/30/20 16:24 Clavicle Rt [CR] Stat - Assessment/Plan Last 24 Hours: My Active Orders 07/30/20 16:24 Clavicle Rt [CR] Stat
[2020-07-30 17:04] VITALS: BP 109/69; PULSE 75
--- NOTE | 2020-07-30 17:13 | CT ---
CT facial bones Technique: Multiple axial sections through the paranasal sinuses were obtained. Reconstructed coronal and sagittal images were obtained. Findings: Soft tissue swelling is seen within the right frontal scalp. Right and left globes are symmetric. No retrobulbar abnormalities are appreciated. Paranasal sinuses show nothing acute. No acute fracture is appreciated. Mild joint space narrowing is seen within both temporomandibular joints. Mild degenerative change is noted within the spine. Impression: 1. Slight degenerative change as noted above. 2. Mild soft tissue swelling with right frontal scalp. 3. Nothing acute is appreciated on CT study of the facial bones. Diagnostic code #2
--- NOTE | 2020-07-30 17:13 | CT ---
Head CT Technique: Multiple axial sections through the brain were obtained. Intravenous contrast was not utilized. Comparison: Prior brain MRI of 07/27/14. Findings: Ventricles along with basal cisterns and sulci of the convexities are mildly prominent. No abnormal parenchymal densities are appreciated. No evidence of intracranial hemorrhage. No midline shift or mass-effect is appreciated. Bone window settings were reviewed. No acute findings within the visualized paranasal sinuses. Nothing acute is seen within the mastoid sinuses. Internal frontal hyperostosis is incidentally noted. Soft tissue swelling seen within the right frontal scalp. No acute osseous abnormality is seen. Impression: 1. Soft tissue swelling within the right frontal region. 2. Mild generalized atrophy and so-called internal frontal hyperostosis which is normal variant for patient of this age. 3. No acute intracranial abnormality is appreciated. Diagnostic code #2
--- NOTE | 2020-07-30 18:33 | CR ---
Right clavicle: 2 views of the right clavicle were obtained. Comparison: No prior clavicle or shoulder exam is available. Right-sided infusion port is seen with tip lying within the superior vena cava. Clavicle appears intact. No discrete fracture or other bony abnormality is seen. No abnormal soft tissue calcifications are noted. Impression: 1. Findings as noted above. 2. Nothing acute is appreciated on right clavicle study. Diagnostic code #2
== END 2020-07-30 17:45 | disposition home or self-care (01) ==
LOC: SUPCPDRO 16:01 → JD.ED 16:01
DX: S00.83XA Contusion of other part of head, initial encounter (principal); S80.02XA Contusion of left knee, initial encounter; S80.01XA Contusion of right knee, initial encounter; S10.91XA Abrasion of unspecified part of neck, initial encounter; I48.91 Unspecified atrial fibrillation; E78.00 Pure hypercholesterolemia, unspecified; I10 Essential (primary) hypertension; J45.909 Unspecified asthma, uncomplicated; K21.9 Gastro-esophageal reflux disease without esophagitis; M10.9 Gout, unspecified; Z88.1 Allergy status to other antibiotic agents; Z91.018 Allergy to other foods; Z88.8 Allergy status to other drugs, medicaments and biological substances; Z88.0 Allergy status to penicillin; Z79.899 Other long term (current) drug therapy; Z79.01 Long term (current) use of anticoagulants; W19.XXXA Unspecified fall, initial encounter
CPT/HCPCS: 70450; 70450-26; 70486; 70486-26; 73000-26-RT; 73000-RT; 99283; 99284-25

== ENCOUNTER 2020-10-26 05:13 | Emergency (ER) | payer MEDICARE, MEDICAID ==
[2020-10-26 05:24] VITALS: BP 141/70; PULSE 86
--- NOTE | 2020-10-26 05:25 | EDM.PDOC ---
ED HPI GENERAL MEDICAL PROBLEM - General Stated Complaint: [facility] Time Seen by Provider: 10/26/20 05:18 Source of Information: Reports: Patient, EMS History Limitations: Reports: No Limitations - History of Present Illness INITIAL COMMENTS - FREE TEXT/NARRATIVE: This is a 62-year-old female. Apparently she got out of bed around 330 or so and she was trying to get back into bed she stumbled backwards and sat down on a metal box. After which she was not able to get up from the floor. She called the ambulance they went to assist her up and she complained of severe buttocks pain and they brought her to the ER for evaluation. She says she did not hit her head or hurt anything else is just her bottom is hurting her. She is on a blood thinner she does have uterine cancer and apparently is getting chemotherapy. She apparently also gets periodic blood transfusions and supposedly is supposed to have some done on Wednesday. Back Pain Score (Numeric/FACES): 9 - Related Data Allergies Allergy/AdvReac Type Severity Reaction Status Date / Time amoxicillin Allergy Severe Hives Verified 10/26/20 05:24 coconut oil Allergy Severe Cannot Verified 10/26/20 05:24 Remember corn Allergy Severe Itching Verified 10/26/20 05:24 doxycycline Allergy Severe Hives Verified 10/26/20 05:24 lithium Allergy Severe Cannot Verified 10/26/20 05:24 Remember Penicillins Allergy Severe Hives Verified 10/26/20 05:24 rofecoxib [From Vioxx] Allergy Severe Cannot Verified 10/26/20 05:24 Remember soy Allergy Severe Itching Verified 10/26/20 05:24 wheat Allergy Severe Cannot Verified 10/26/20 05:24 Remember oats Allergy Severe Itching Uncoded 10/26/20 05:24 Home Meds: Home Meds Acetaminophen [Tylenol Arthritis Pain] 650 mg PO Q8HR PRN 08/08/14 [History] Calcium Carb, Citrate/Vit D3 [Calcium + D3 ER Tablet] 600 mg PO DAILY 08/08/14 [History] Furosemide [Lasix] 40 mg PO DAILY 08/08/14 [History] Pantoprazole [Protonix] 40 mg PO DAILY 08/08/14 [History] Polyvinyl Alcohol/Povidone [Refresh Eye Drops] 1 each EYEBOTH DAILY PRN 08/08/14 [History] Potassium Chloride [Klor-Con M20] 20 meq PO TID 08/08/14 [History] Rosuvastatin [Crestor] 5 mg PO DAILY 08/08/14 [History] Vitamin B Complex 1 tab PO DAILY 08/08/14 [History] allopurinoL [Allopurinol] 150 tab PO DAILY 08/08/14 [History] Cetirizine [ZyrTEC] 10 mg PO DAILY 11/27/15 [History] Sennosides/Docusate Sodium [Sennalax-S] 2 tab PO BEDTIME 11/27/15 [History] dilTIAZem HCL [Diltiazem ER] 180 mg PO DAILY 11/27/15 [History] Digoxin 0.0625 mg PO DAILY #15 ml 05/17/20 [Rx] Apixaban [Eliquis] 5 mg PO BID 05/27/20 [History] Gabapentin [Neurontin] 300 mg PO BID 05/27/20 [History] Metoprolol Succinate 50 mg pe PO DAILY 05/27/20 [History] Nitroglycerin [Nitrostat] 0.4 mg SL ASDIRECTED 05/27/20 [History] Simethicone 80 mg PO ASDIRECTED PRN 05/27/20 [History] Albuterol Sulfate 2.5 mg PO QID PRN 07/30/20 [History] Hydrocodone/Acetaminophen [Hydrocodone-Acetamin 10-325 mg] 1 tab PO Q6H PRN 07/30/20 [History] Ketoconazole [Nizoral 2% Crm] 1 applic TOP ASDIRECTED 07/30/20 [History] Multivitamin with Minerals [Multivitamins with Minerals] 1 tab PO DAILY 07/30/20 [History] OLANZapine [Olanzapine] 10 mg PO ASDIRECTED 07/30/20 [History] Ondansetron [Zofran] 4 mg PO Q6H PRN 07/30/20 [History] Ondansetron [Zofran] 8 mg PO TID PRN 07/30/20 [History] Prochlorperazine [Compazine] 10 mg PO QID PRN 07/30/20 [History] Promethazine HCl/Codeine [Prometh-Codein 6.25-10 mg/5 ml] 15 ml PO Q4H PRN 07/30/20 [History] Spironolactone [Aldactone] 25 mg PO DAILY 07/30/20 [History] Tacrolimus [Protopic] 1 applic TOP ASDIRECTED 07/30/20 [History] dexAMETHasone [Dexamethasone] 8 mg PO ASDIRECTED 07/30/20 [History] diphenhydrAMINE [Benadryl] 25 mg PO ASDIRECTED 07/30/20 [History] Past Medical History HEENT History: Reports: Allergic Rhinitis, Cataract Cardiovascular History: Reports: Afib, High Cholesterol, Hypertension Other Cardiovascular History: lower leg lymphedema, edema, Hx of Chest Pressure with A-Fib. With her 50 pound weight loss she is now down to 80 mg of Lasix once daily in the morning instead of twice daily with Aldactone use to minimize potassium losses. Respiratory History: Reports: Asthma, Sleep Apnea Other Respiratory History: does not use her CPAP Gastrointestinal History: Reports: GERD Musculoskeletal History: Reports: Arthritis, Gout, Osteoarthritis Endocrine/Metabolic History: Reports: Diabetes, Type II (Patient is currently lost 50 pounds since diagnosis of cancer of the uterus in November. She is currently now off of her Metformin.) Oncologic (Cancer) History: Reports: Uterine (With cancer of the uterus in early November 2019 by endometrial biopsy. She then went to [facility] to have total abdominal hysterectomy and BSO. This was complicated by the development of atrial fibrillation with rapid ventricular rate about a half an hour prepped for proposed surgery. This of course delayed the surgery for period of time. Since that time the patient has been on Eliquis for atrial fibrillation. Patient is currently receiving chemotherapy every 3 weeks with the next treatment due 07 August. Early there is residual tumor mass above her bladder down in the pelvis. She is experiencing intermittent bleeding per vagina presumably from perforation of the vaginal cuff for at least involvement with tumor.) Dermatologic History: Reports: Other (See Below) Other Dermatologic History: rash on her abdomen - Past Surgical History HEENT Surgical History: Reports: Cataract Surgery GI Surgical History: Reports: Cholecystectomy, Hernia, Inguinal Female Surgical History: Reports: Hysterectomy Musculoskeletal Surgical History: Reports: Knee Replacement Other Musculoskeletal Surgeries/Procedures:: Right total knee replacement Social & Family History - Caffeine Use Caffeine Use: Reports: Coffee, Tea - Living Situation & Occupation Living situation: Reports: Single Occupation: Retired ED ROS GENERAL - Review of Systems Review Of Systems: See Below Constitutional: Reports: Weakness. Denies: Fever, Chills HEENT: Reports: No Symptoms Respiratory: Denies: Shortness of Breath, Cough Cardiovascular: Reports: No Symptoms Endocrine: Reports: No Symptoms GI/Abdominal: Reports: Nausea. Denies: Abdominal Pain, Vomiting : Reports: Discharge Musculoskeletal: Reports: Back Pain Skin: Reports: No Symptoms Neurological: Reports: No Symptoms Psychiatric: Reports: No Symptoms Hematologic/Lymphatic: Reports: Anemia ED EXAM,LOWER BACK PAIN/INJURY - Physical Exam Exam: See Below Exam Limited By: No Limitations General Appearance: Alert, WD/WN, No Apparent Distress, Other (She does complain of buttocks pain) Eye Exam: Bilateral Eye: Normal Inspection Ears: Normal External Exam Nose: Normal Inspection Throat/Mouth: Normal Lips, Normal Voice, No Airway Compromise Head: Normocephalic, Other (The patient is bald due to the chemotherapy) Neck: Supple, Non-Tender Respiratory/Chest: No Respiratory Distress, Lungs Clear, Normal Breath Sounds, Other (No rib tenderness on palpation bilaterally) Cardiovascular: Regular Rate, Rhythm, No Murmur GI/Abdominal: Soft, Other (Patient has an enlarged habitus) Back Exam: Other (I have some mild tenderness in the lower lumbar on palpation there is no bruising noted, she is tender in the crack between the buttocks and she has a small bruise noted on the right buttocks.) Extremities: Normal Inspection, Normal Range of Motion, Other (Appears to use her upper and lower extremities without difficulty and she is able to sit up in bed with no difficulty other than her buttocks hurts.) Neurological: Alert, Normal Mood/Affect Psychiatric: Normal Affect, Normal Mood Skin Exam: Warm, Dry Course - Vital Signs Last Recorded V/S: Last Vital Signs Temp 97.5 F 10/26/20 05:20 Pulse 86 10/26/20 05:20 Resp 20 10/26/20 05:20 BP 141/70 H 10/26/20 05:20 Pulse Ox 96 10/26/20 05:20 - Orders/Labs/Meds Orders: Active Orders 24 hr Category Date Time Status Lumbar Spine 2 or 3V [CR] Stat Exams 10/26/20 05:19 Ordered Sacrum Coccyx Min 2V [CR] Stat Exams 10/26/20 05:19 Ordered - Radiology Interpretation Free Text/Narrative:: Lumbar x-ray films do not show any acute fractures or compression fractures though she does have a lot of arthritic changes. Sacrum and coccyx do not suggest any fractures. In the coccyx area I do not see any discrete fracture but the very distal segment is offset slightly. - Re-Assessments/Exams Free Text/Narrative Re-Assessment/Exam: 10/26/20 06:36 Nurses were able to get the patient up and walk her with her walker to the bathroom and back with minimal assistance. Departure - Departure Time of Disposition: 06:37 Disposition: Home, Self-Care 01 Condition: Fair Clinical Impression: Contusion of buttock Qualifiers: Encounter type: initial encounter Qualified Code(s): S30.0XXA - Contusion of lower back and pelvis, initial encounter Sacral contusion Qualifiers: Encounter type: initial encounter Qualified Code(s): S30.0XXA - Contusion of lower back and pelvis, initial encounter - Discharge Information *PRESCRIPTION DRUG MONITORING PROGRAM REVIEWED*: Not Applicable *COPY OF PRESCRIPTION DRUG MONITORING REPORT IN PATIENT CALI: Not Applicable Instructions: Contusion, [id number] Referrals: Eugenio Aguilar MD [Primary Care Provider] - Forms: ED Department Discharge Additional Instructions: Home and place ice on the areas that hurt as much as possible over the next 24 hours, be very careful about getting up and moving around the house but you do n eed to get up and move, consider calling your doctor on Wednesday about going back to the care home where you could have better care, return to the ER if needed Sepsis Event Note (ED) - Focused Exam Vital Signs: Vital Signs Temp Pulse Resp BP Pulse Ox 10/26/20 05:20 97.5 F 86 20 141/70 H 96 - My Orders Last 24 Hours: My Active Orders 10/26/20 05:19 Lumbar Spine 2 or 3V [CR] Stat Sacrum Coccyx Min 2V [CR] Stat - Assessment/Plan Last 24 Hours: My Active Orders 10/26/20 05:19 Lumbar Spine 2 or 3V [CR] Stat Sacrum Coccyx Min 2V [CR] Stat
--- NOTE | 2020-10-26 09:09 | CR ---
Sacrum and coccyx: AP and lateral views of the sacrum and coccyx were obtained as well as slight oblique view. Comparison: No previous sacrum and coccyx study. Mild degenerative change is seen within both sacroiliac joints. Osteopenia is present. No acute fracture or other bony abnormality is appreciated. Minimal disc space narrowing at L5-S1 is noted. Impression: 1. Osteopenia and mild degenerative change. 2. Nothing acute is appreciated on three-view sacrum and coccyx study. Diagnostic code #2
--- NOTE | 2020-10-26 09:10 | CR ---
Lumbar spine: AP, lateral and coned-down lateral view centered to the lumbosacral junction were obtained. Comparison: No prior lumbar spine imaging is available. Minimal disc space narrowing at L5-S1. Vertebral body heights are maintained. Minimal spondylolisthesis is seen at L4-5 measuring approximately 3.5 mm. The spondylolisthesis is most likely due to degenerative apophyseal change. Scattered anterior osteophytes are seen within the lumbar and lower thoracic spine. Pedicles are intact. Visualized transverse and spinous processes are intact. Surgical clips are seen within the upper right abdomen. No acute fracture is seen. Impression: 1. Degenerative change as noted above. 2. Nothing acute is appreciated on 2 view lumbar spine study. Diagnostic code #2
== END 2020-10-26 07:10 | disposition home or self-care (01) ==
LOC: JD.ED 05:13
DX: S30.0XXA Contusion of lower back and pelvis, initial encounter (principal); I48.91 Unspecified atrial fibrillation; E78.00 Pure hypercholesterolemia, unspecified; I10 Essential (primary) hypertension; J45.909 Unspecified asthma, uncomplicated; K21.9 Gastro-esophageal reflux disease without esophagitis; M10.9 Gout, unspecified; E11.9 Type 2 diabetes mellitus without complications; Z88.0 Allergy status to penicillin; Z91.018 Allergy to other foods; Z88.1 Allergy status to other antibiotic agents; Z91.048 Other nonmedicinal substance allergy status; Z88.8 Allergy status to other drugs, medicaments and biological substances; Z79.01 Long term (current) use of anticoagulants; Z79.899 Other long term (current) drug therapy; W01.0XXA Fall on same level from slipping, tripping and stumbling without subsequent striking against object, initial encounter
CPT/HCPCS: 72100; 72100-26; 72220; 72220-26; 99282; 99284-25